=== PATIENT | male | born 1980 | race Caucasian/White ===

== ENCOUNTER 2020-01-29 05:23 | Emergency (ER) | payer SELFPAY ==
[~2020-01-29] VITALS: Ht 182.9 cm; Wt 86.2 kg
--- NOTE | 2020-01-29 05:23 | NUR ---
MARISOL REBOLLAR, PREBOOK. TAKEN TO CHAIR.
[2020-01-29 05:30] VITALS: BP 117/86
--- NOTE | 2020-01-29 05:40 | NUR ---
Dr. Vázquez examining patient.
--- NOTE | 2020-01-29 05:47 | NUR ---
PATIENT BIB [employer]. PATIENT EXAMINED BY DR. RAMIREZ. PATIENT MEDICALLY CLEARED AND RELEASED IN CUSTODY IN STABLE CONDITION. ORIGINAL PRE-BOOK FORM GIVEN TO OFFICER LENORA, #[phone].
== END 2020-01-29 05:47 ==
LOC: MED 05:23
DX: G89.29 Other chronic pain (principal); Z02.89 Encounter for other administrative examinations
CPT/HCPCS: 99283

== ENCOUNTER 2020-03-17 03:20 | Emergency (ER) | payer OTHER ==
[~2020-03-17] VITALS: Ht 182.9 cm; Wt 72.6 kg
[2020-03-17 03:20] VITALS: BP 155/100
--- NOTE | 2020-03-17 03:20 | NUR ---
TO [facility] WITH [place] [employer].
--- NOTE | 2020-03-17 03:42 | NUR ---
SEEN AND EXAMINED BY CLOVIS WITH ORDERS, CARRIED OUT.
[2020-03-17 04:00] VITALS: BP 138/98
--- NOTE | 2020-03-17 04:00 | NUR ---
PATIENT [facility]. PATIENT EXAMINED BY DR. AGUILAR. PATIENT MEDICALLY CLEARED AND RELEASED IN CUSTODY IN STABLE CONDITION. ORIGINAL PRE-BOOK FORM GIVEN TO OFFICER Mackenzie NAM #[phone].
--- NOTE | 2020-03-17 04:00 | NUR ---
Patient discharged with v/s stable. Written and verbal after care instructions given and explained. Patient verbalized understanding. Ambulatory with in custody. All questions addressed prior to discharge. Advised to follow up with PMD.
== END 2020-03-17 04:00 ==
LOC: MED 03:20
DX: R07.9 Chest pain, unspecified (principal); Z20.828 Contact with and (suspected) exposure to other viral communicable diseases; Z02.89 Encounter for other administrative examinations
CPT/HCPCS: 93005; 99283

== ENCOUNTER 2021-06-22 01:03 | Inpatient (IN) | payer OTHER ==
[~2021-06-22] VITALS: Ht 175.3 cm; Wt 81.6 kg
[2021-06-22 01:10] VITALS: BP 140/95
--- NOTE | 2021-06-22 01:12 | NUR ---
PATIENT IN ROOM 5
--- NOTE | 2021-06-22 01:16 | NUR ---
PD AT BEDSIDE TO PLACE PATIENT ON HOLD
--- NOTE | 2021-06-22 01:16 | NUR ---
PATIENT PLACED ON [place] GUIDE, BED LOW AND LOCKED. JH SIDE RAILS UP FOR SAFETY. ALL NEEDS MET AT THIS TIME.
--- NOTE | 2021-06-22 01:17 | NUR ---
[place] [employer] AT BEDSIDE TO PLACE PATIENT ON HOLD.
[2021-06-22] MEDS ORDERED: NALOXONE PFS 2 MG/2 ML SYR IVP ONE (01:20)
[2021-06-22] MEDS ORDERED: NACL 0.9% 1,000 ML IV ONE (01:20)
--- NOTE | 2021-06-22 01:20 | NUR ---
41/M BIBA FOR ALTERED MENTAL STATUS. PATIENT IS AAOX0. SPEECH IS UNCOMPREHENSIVE. PATIENT RESPONDS TO PAIN AND VERBAL STIMULI. PER PD PATIENT IS BEING PLACED ON HOLD FOR BEING GRAVELY DISABLED, AFTER FALLING AT A TRANSIT CENTER. PATIENT WAS DRINKING PRIOR TO FALL. PATIENT FALL WAS WITNESSED BY A BYSTANDERED. UNKNOWN LOC. PATIENT CURRENTLY HAS A FALL RISK ARM BAND, NONSLIP SOCKS AND GOWN FROM A PREVIOUS HOSPITAL VISIT. PATIENT HAS A RIGHT HAND BRACE AND RIGHT HEAD DENT. PATIENT BEING ASSESSED BY MD PALMA. BED LOW AND LOCKED. JH SIDE RAILS UP FOR SAFETY. PLACED ON STEEPLE JACK. ALL NEEDS MET AT THIS TIME. ALLERGIES UNOBTAINABLE PMHX UNOBTAINABLE MEDS UNOBTAINABLE
--- NOTE | 2021-06-22 01:28 | NUR ---
TAMRA SWAB COLLECTED AND HANDED TO LAB
--- NOTE | 2021-06-22 01:28 | NUR ---
LAB AT BEDSIDE
--- NOTE | 2021-06-22 01:30 | NUR ---
PATIENT CLEANED UP AND PLACED ON A GOWN AND NONSLIP SOCKS. WARM COVERS FOR COMFORT. PATIENT COOPERATIVE AND CALM.
[2021-06-22 01:39] LABS: BASOPHILS # (AUTO) 0.3 K/uL (0.00-0.22); EOSINOPHILS # (AUTO) 0.1 K/uL (0-0.4); EOSINOPHILS % (AUTO) 1.2 % (0.0-4.0); HEMATOCRIT 40.6 % (36-52); HEMOGLOBIN 13.8 g/dL (12.0-18.0); LYMPHOCYTES # (AUTO) 1.1 K/uL (2.0-11.5); LYMPHOCYTES % (AUTO) 22.3 % (20.5-51.1); MEAN CORPUSCULAR HEMOGLOBIN 30 pg (27-31); MEAN CORPUSCULAR HGB CONC 34 g/dL (33-37); MONOCYTES # (AUTO) 0.4 K/uL (0.8-1.0); MONOCYTES % (AUTO) 8.1 % (1.7-9.3); NEUTROPHILS # (AUTO) 3.2 K/uL (1.8-7.7); NEUTROPHILS % (AUTO) 62.4 % (42.2-75.2); PLATELET COUNT (AUTO) 205 K/uL (140-450); RED BLOOD CELL COUNT(AUTO) 4.56 MIL/uL (4.20-6.10); RED CELL DISTRIBUTION WIDTH 14.6 % (11.6-13.7)
[2021-06-22 01:51] LABS: CARBON DIOXIDE 25.8 mmol/L (21-32)
[2021-06-22 01:53] LABS: ANION GAP 15.8 (8-16); CHLORIDE 104 mmol/L (98-107); POTASSIUM 3.6 mmol/L (3.5-5.1); SODIUM SERUM 142 mmol/L (136-145)
--- NOTE | 2021-06-22 01:57 | NUR ---
patient to CT via [facility]
--- NOTE | 2021-06-22 01:59 | NUR ---
Analia hernandez in [facility] - 06/22/21 at 0159 by STEPHANE PATIENT TAKEN TO CT VIA [facility]
[2021-06-22 02:01] LABS: CREATININE 0.9 mg/dL (0.6-1.3); GFR ARICAN-AMERICAN 121 mL/min (>90); GLUCOSE 83 mg/dL (74-106); UREA NITROGEN, BLOOD 16 mg/dL (7-18)
[2021-06-22 02:10] LABS: ASPARTATE AMINOTRANSFERASE 25 U/L (15-37); TOTAL BILIRUBIN 0.3 mg/dL (0.0-1.0)
[2021-06-22 02:11] LABS: ALBUMIN 4.3 g/dL (3.4-5.0)
[2021-06-22 02:13] LABS: ACETAMINOPHEN < 0.5 ug/ml (10-30); SALICYLATE < 2.8 mg/dL (2.8-20.0)
--- NOTE | 2021-06-22 02:41 | NUR ---
# 16 FR Urinary catheter inserted utilizing sterile technique. Immediate return of 6 ml yellow/clear urine noted. Urine sample collected and sent to lab. Pt tolerated procedure well.
--- NOTE | 2021-06-22 02:41 | NUR ---
UA COLLECTED AND WALKED TO LAB
[2021-06-22 02:42] LABS: APPEARANCE,URINE CLEAR (CLEAR); BILIRUBIN,URINE NEGATIVE (NEGATIVE); BLOOD, URINE NEGATIVE (NEGATIVE); COLOR,URINE YELLOW (YELLOW); LEUKOCYTE ESTERASE ,URINE NEGATIVE (NEGATIVE); NITRITE, URINE NEGATIVE (NEGATIVE); UGLUCOSE NEGATIVE (NEGATIVE)
[2021-06-22 03:04] LABS: BARBITURATE, URINE NEGATIVE ng/ml (NEG <=200); BENZODIAZEPINE, URINE NEGATIVE ng/mL (NEG <=200); COCAINE, URINE NEGATIVE ng/mL (NEG <=300)
[2021-06-22 03:05] LABS: CANNABINOID, URINE NEGATIVE ng/mL (NEG <=50); OPIATE, URINE NEGATIVE ng/mL (NEG <=2000); PHENCYCLIDINE SCREEN,URINE NEGATIVE ng/mL (NEG <=25)
[2021-06-22] MEDS ORDERED: ONDANSETRON 4 MG/2 ML VIAL ONE (04:23)
--- NOTE | 2021-06-22 04:27 | NUR ---
patient feeling nauseated. ERMD made aware-- order of zofran 4mg IVP received
[2021-06-22] MEDS ORDERED: THIAMINE 200 MG/2 ML VIAL IM ONE (04:30)
[2021-06-22] MEDS ORDERED: MULTIVITAMIN-12 10 ML in NACL 0.9% 1,000 ML IV ONE (04:30)
[2021-06-22] MEDS ORDERED: MAG SULF 2000 MG/WATER PREMIX 50 ML IV ONE (04:30)
[2021-06-22] MEDS ORDERED: FOLIC ACID 5 MG/ML SYR IM ONE (04:30)
[2021-06-22] MEDS ORDERED: ONDANSETRON 4 MG/2 ML VIAL IVP ONE (04:30)
[2021-06-22] MEDS ORDERED: LORazepam 2 MG/ML VIAL ONE (04:40)
[2021-06-22] MEDS ORDERED: LORazepam 2 MG/ML VIAL IVP ONE ×2 (04:40)
--- NOTE | 2021-06-22 04:42 | NUR ---
patient becoming agitated, and restless. patient yelling and attempted to throw urinal bottle.
--- NOTE | 2021-06-22 04:49 | NUR ---
IV removed, catheter intact and site benign. Applied folded 4x4 gauze and tape to stop bleeding.
[2021-06-22] MEDS ORDERED: MULTIVITAMIN-12 10 ML VIAL IV ONE (04:58)
--- NOTE | 2021-06-22 05:18 | NUR ---
TELE NEURO FINISHED BY .
--- NOTE | 2021-06-22 06:41 | NUR ---
Pt report given to Zully ADLER. Transfer of care at this time.
--- NOTE | 2021-06-22 06:51 | NUR ---
attempted to start IV multiple times- unsuccessful
--- NOTE | 2021-06-22 07:15 | NUR ---
RECEIVED REPORT FROM JIMBO RN, TRANSFER OF CARE AT THIS TIME. RECEIVED PATIENT A/OX0, BANANA BAG INFUSING WELL AT 250CC/HR 22G IN THE LEFT WRIST. SEMI FOWLERS IN BED, BED IN LOWEST POSITION, LOCKED. BRACE ON THE RIGHT WRIST, CONTRACTED RIGHT ARM. RESPIRATIONS EVEN AND UNLABORED, NO S/S OF DISTRESS NOTED AT THIS TIME.
--- NOTE | 2021-06-22 07:15 | NUR ---
SEIZURE PADS PLACED, PT POSSIBLE SEIZURE FOR ALCOHOL WITHDRAWAL
[2021-06-22 07:45] VITALS: BP 128/85
--- NOTE | 2021-06-22 07:45 | NUR ---
PT ARRIVED ONTO UNIT VIA GURNEY FROM ER, ACCOMPANIED BY ER NURSE NAD TRANSPORTER. PT IS ASLEEP AT THIS TIME. RESPIRATIONS ARE EVEN AND UNLABORED. NO SIGNS OF DISTRESS NOTED. PER ER NURSE, PT IS A&OX0, HAS ONLY WOKEN UP FOR SHORT PERIODS OF TIME AND FALLS ASLEEP AGAIN. PT IS ON CARDIAC MONITORING AT THIS TIME, HR AT 104. ABD IS NONTENDER, NONDISTENDED. PT IS ON NPO DIET EXCEPT FOR MEDS AT THIS TIME. SKIN IS WARM, AND DRY. SMALL CUT NOTED TO R LUTHERAN. PT IS HERE FOR 5150 HOLD. MRSA SCREEN DONE. VITALS TAKEN. ALL SAFETY MEASURES IN PLACE. SITTER AT DOOR WAY. WILL CONTINUE TO MONITOR.
--- NOTE | 2021-06-22 07:45 | NUR ---
Patient will be admitted to care of LEIDY FAJARDO. Admited to TELEMETRY. Will go to room 107A. Belongings list completed. Report to RONNY MELTON.
--- NOTE | 2021-06-22 08:00 | NUR ---
Patient's Plan of Care was discussed and reviewed with INDUSTRIAL ENGINEERING PROFESSOR: RONNY VILLATORO
[2021-06-22] MEDS: DEXT 5% /NACL 0.9% 1,000 ML IV SCH ×2 (08:30→16:49)
[2021-06-22] MEDS ORDERED: DOCUSATE SODIUM 100 MG GELCAP PO PRN (08:30)
[2021-06-22] MEDS ORDERED: guaiFENesin DM 200/20 MG-10 ML 10 ML UDC PO PRN (08:30)
[2021-06-22] MEDS ORDERED: ONDANSETRON 4 MG/2 ML VIAL IM/IVP PRN (08:30)
[2021-06-22] MEDS ORDERED: POTASSIUM CHLORIDE 10 MEQ TABER PO PRN (08:30)
[2021-06-22] MEDS ORDERED: LORazepam 2 MG/ML VIAL IVP PRN (08:35)
[2021-06-22] MEDS ORDERED: MULTIVITAMIN-12 10 ML, FOLIC ACID 1 MG in DEXT 5% / LACT RING 1,000 ML IV ONE (08:35)
[2021-06-22] MEDS: chlordiazePOXIDE 25 MG CAP PO SCH ×3 (09:00→17:59)
[2021-06-22] MEDS: PANTOPRAZOLE 40 MG TABEC PO SCH (09:00)
[2021-06-22 09:28] LABS: PROTHROMBIN TIME 10.1 secs (10.8-13.4)
[2021-06-22 09:30] LABS: CHOL/HDL RATIO 2.9 (1-4.5); FREE T4 (FREE THYROXINE) 1.1 ng/dL (0.76-1.46); MAGNESIUM 2.1 mg/dL (1.8-2.4); PHOSPHORUS 4.3 mg/dL (2.5-4.9); THYROID STIMULATING HORMONE 1.26 uIU/mL (0.34-3.74)
--- NOTE | 2021-06-22 09:56 | NUR ---
DC PLANNIN YRS OLD MALE PATIENT WAS ADMITTED FROM HOME WITH A DX OF ALOC, METABOLIC ENCEPHALOPATHY, ETOH INTOXICATION. PATIENT HAS A HX OF HTN. CT HEAD SHOWED SMALL HEMORRHAGES AND LEFT CRANIOTOMY WITH LEFT FRONTAL LOBE ENCEPHALOMALACIA. CXR NEGATIVE. RAPID COVID TEST NEGATIVE. ADMINISTERED IVF. CONSULTED WITH NEUROLOGIST. DC PLAN PER NEUROLOGIST RECOMMENDATIONS. CM TO FOLLOW Addendum: 06/23/21 at 0923 by Harini Rolle RN DC PLANNING: DR GOMEZ NEUROLOGIST VISITED PATIENT ,STILL RECOMMENDED TO TRANSFER TO [facility] FOR LEFT FRONTAL CYSTIC HYGOMA OR BRAIN ABSCESS AT LEFT CRANIECTOMY SITE. CALLED [facility] POULTRY SLAUGHTERER SPOKE WITH ADY,EXPLAINED THAT DR GOMEZ RECOMMENDED THAT PT HAS TOGO BACK TO [facility]. ADY STATED CASE WAS DECLINED BY NEUROSURGEON DR ABAD, HOWEVER WILL CONTACT HIM AGAIN AND SUBMIT DR GOMEZ'S PROGRESS NOTES. PROVIDE DR GOMEZ'S CELL PHONE FOR PEER TO PEER. CM TO FOLLOW
--- NOTE | 2021-06-22 10:03 | NUR ---
UNABLE TO ADMINISTER SCHEDULED MEDICATIONS DUE TO PT CLINICAL CONDITION. WILL CONTINUE TO MONITOR.
--- NOTE | 2021-06-22 10:58 | NUR ---
PT WOKE UP, ASKING FOR WATER. ADMINISTERED PO LIBRIUM. PT WENT BACK TO SLEEP. WILL CONTINUE TO MONITOR.
--- NOTE | 2021-06-22 11:24 | NUR ---
DC PLANNING MACEY ATTEMPTED TO MEET WITH PATIENT AT BEDSIDE HOWEVER, UNABLE TO MEET WITH PATIENT DUE TO PATIENTS CLINICAL STATUS. Addendum: 07/04/21 at 1635 by Shaun RAMAN INCAPACITY DECLARATION WRITTEN BY DIRECTOR, LETTER PROVIDED TO CONCERT PIANISTDAMEON. Addendum: 07/11/21 at 1452 by Shaun RAMAN MACEY OUTREACHED TO [facility], [phone], PATIENT'S LAST KNOWN SNF PLACEMENT. SW ON HOLD FOR 28 MINUTES FOR FACILITIES SW'S, BEFORE BEING DISCONNECTED. MACEY CONTINUED TO CALL FACILITY AND REQUESTED TO SPEAK WITH FACILITIES SW AND/OR ADMIN. FACILITIES FIBER MACHINE TENDER, BELTRAN, REPORTED BEING UNABLE TO REACH FACILITIES SW'S ( LAKISHA OR GRETCHEN) HOWEVER, TOOK DOWN PHONE NUMBER AND REPORTED THAT SHE WOULD GIVE MESSAGE TO FACILITIES SW. Addendum: 07/11/21 at 1531 by Shaun RAMAN MACEY OUTREACHED TO [facility] ADMISSIONS AND SPOKE WITH HAYLEE, TO INQUIRE ON CRITERIA/REQUIREMENTS FOR BRAIN INJURY ADMISSIONS. MACEY SENT OVER PACKET TO BE REVIEWED BY [facility] HAYLEE WANG TO FOLLOW UP. Addendum: 07/12/21 at 1518 by Shaun RAMAN DC PLANNING LATE ENTRY FOR 07/11 MACEY FIELDED A CALL FROM [facility] BRAIN INJURY UNIT WHO REPORTED THAT PATIENTS PACKET HAD BEEN REVIEWED. ADMISSION REP REPORTED THAT PATIENT IS NOT A CANDIDATE FOR PROGRAM PATIENT IS HOMELESS, OUT OF SNF DAYS, TOO HIGH FX AND HAS NO SUPPORTIVE FAMILY CARE THAT ARE LEGALLY MANDATED TO BE TRAINED ON HOW TO CARE FOR PATIENT.
[2021-06-22 12:00] VITALS: BP 128/76
--- NOTE | 2021-06-22 12:49 | NUR ---
ENDORSED PT TO LINH WILLIAM FOR CONTINUITY OF CARE. PT IS STABLE.
--- NOTE | 2021-06-22 12:50 | NUR ---
RECEIVED REPORT FROM NURSE JEFFERSON FOR CONTINUITY OF CARE. PT IS SLEEPING AT THIS TIME. CHEST RISING AND FALLING WITHOUT ACUTE DISTRESS AT ROOM AIR. IV SITE AT LEFT WRIST G22. PT WITH 1:1 SITTER. SAFETY MEASURES IN PLACE. BED ALARM ON AND AT ITS LOWEST POSITION. WILL CONTINUE TO MONITOR.
--- NOTE | 2021-06-22 13:35 | NUR ---
IV LINE KAMERON G 20 INSERTED BY RN. PT TOLERATED WELL. WILL CONTINUE TO MONITOR.
--- NOTE | 2021-06-22 13:55 | NUR ---
PT LEFT THE UNIT WITH RADIOLOGY STAFF FOR CT ANGIO HEAD. PT IS STABLE.
--- NOTE | 2021-06-22 14:00 | NUR ---
HAD A CALL FROM DR. PAXTON BONNER SAID PATIENT NEEDS TO TRANSFER TO [facility] FOR BRAIN BLEEDING. NOTIFIED MEAT SCRUBBER PAT AND MADE AWARE. PATIENT OFF FLOOR WENT TO CT SCAN.
--- NOTE | 2021-06-22 14:27 | NUR ---
DC PLANNING: CM RECEIVED AN ORDER TO TRANSFER PATIENT TO [facility] TO DX OF CEREBRAL BLEED. CLINICAL PACKET FAXED TO [facility], [facility] AND [facility]. CM SPOKE WITH EACH HOSPITAL TO MAKE THEM AWARE THAT THE REFERRAL HAS BEEN SENT AND ASKING FOR FOLLOW UP. CM WILL FOLLOW. Addendum: 06/22/21 at 1506 by Rosa Isela March CM DC PLANNING: JOSELUIS SPOKE WITH SEN AT [facility], STATES PATIENT CLINICAL SCENARIO WAS REVIEWED BY TRAUMA, NEUROLOGY AND NEUROSURGERY, ALL DECLINED TRANSFER STATING THAT PATIENT DOES NOT REQUIRE SURGICAL INTERVENTION AND THAT THE BLEED IS TOO SMALL FOR INTERVENTION. THEY RECOMMEND OBSERVING PATIENT AND REPEATING THE HEAD CT. CM WILL FOLLOW. Addendum: 06/22/21 at 1620 by Rosa Isela March CM DC PLANNING: JOSELUIS SPOKE WITH JEB AT [facility], SHE IS ATTEMPTING TO SPEAK WITH THE ATTENDING MD OR NEUROLOGIST FOR THIS PATIENT, ALSO ASKED FOR PCR, ORDER PLACED FOR THIS. CASE STILL UNDER REVIEW. NO RESPONSE FROM [facility] YET. CM WILL FOLLOW Addendum: 06/23/21 at 1501 by Harini Rolle RN DC PLANNING: CALLED [facility] SPOKE WITH ADY MARTIN STATED RECEIVED THE HEAD CT WITH CONTRAST AWAITING FOR DR ABAD TO CALL BACK. PER ADY FOUND THE RECORD THAT SAYS HE HAD A LEFT CRANIOTOMY ON AUGUST 18, 2021. DR ABAD IS ASKING TO CONSULT ID FOR BRAIN ABSCESS. NOTIFIED DR MATTA AND DR MATTA CONSULTED DR GALLEGO. CM TO FOLLOW Addendum: 06/23/21 at 1705 by Harini Rolle RN DC PLANNING: RECEIVED A CALL FROM AMINA AT [facility] VERONICA , REACHED OUT TO DR PETERS WHO PERFORMED THE SURGERY ON August REQUESTING THE INFECTIOUS DISEASE INPUT, INFORM NAMRATA MARTIN TO FOLLOW UP WITH ID NOTE AND FAXED TO [facility] WHEN ITS AVAILABLE. [facility] FAX # [phone] PHONE NUMBER [phone] CM TO FOLLOW Addendum: 06/27/21 at 1058 by Harini Rolle RN DC PLANNING: PATIENT HAS AN ORDER TO GO TO SNF FOR GRAVELY DISABLED, CM SPOKE WITH PATIENT BUT PATIENT IS APHASIC ANSWERED YES OR NO QUESTION, UNABLE TO FOLLOW CONVERSATION NO FAMILY AVAILABLE. FAXED TO [facility]. CM TO FOLLOW Addendum: 06/27/21 at 1103 by Harini Rolle RN DC PLANNING: CALLED [phone] LEFT A MESSAGE. CM TO FOLLOW Addendum: 06/27/21 at 1646 by Harini Rolle RN DC PLANNING: RECEIVED A CALL FROM [facility] [place] STATED PATIENT WAS AT MULTIPLE SNF PRIOR TO HOSPITALIZATION AND THEY ARE UNABLE TO TAKE PATIENT BECAUSE HE HAS NO SNF DAYS, AND NO MEDICAL. NOTIFIED SOLO AT [facility] WILL APPLY FOR MEDICAL. CM CALLED SHANE GARCÍA SPOKE WITH SARAH STATED PATIENT WAS WITH THEM FROM APR 04 TO MAY 15 AND SIGNED AMA. SARAH PROVIDE THE SENIOR CLINICAL DATA COORDINATOR HEBERT [phone] AND MARK [phone]. CALLED HEBERT NOTIFIED HER THAT PATIENT IS IN [facility]. HEBERT STATED SHE IS HIS AUNT AND MARK IS HER DAUGHTER, SHE CAN BE A SENIOR CLINICAL DATA COORDINATOR AND A DISCISSION MAKER ON ANY MEDICAL NEEDS. SHE ALSO STATED THE BRAIN SURGERY AFFECTS HIS SPEECH AND SHE WAS AWARE THAT HE SIGNED AMA FROM THE SNF AND AFTER THAT SHE HADN'T SEEN HIM OR SPOKE WITH HIM. CM TO FOLLOW Addendum: 06/29/21 at 1107 by Harini Rolle RN LATE ENTRY 06/28 RECEIVED A CALL FROM BAIRON AT [facility] STATED THEY CAN NOT TAKE PATIENT BECAUSE PATIENT HAS NO SNF DAYS AND ALL SNF'S CAN NOT TAKE LIFE TIME RESERVED DAYS. TERRI BANDA LEFT A MESSAGE FOR FAMILY MEMBER. CALLED [facility] [phone] SPOKE WITH DENISE, DISCUSSED PATIENT CONDITION AND SITUATION PER DENISE IF PATIENT IS APHASIC OR CAN NOT EXPRESS HIS FEELINGS [facility] UNABLE TO HELP HIM. DECLINE THE CASE. CM TO FOLLOW Addendum: 06/29/21 at 1313 by Harini Rolle RN DC PLANNING: LUIGI BANDA AT [facility] STATED LEFT A MESSAGE FOR PT'S AUNT HEBERT. AWAITING FOR RESPONSE. CM TO FOLLOW Addendum: 06/30/21 at 1034 by Harini Rolle RN DC PLANNING: CALLED PT'S AUNT HEBERT AT [phone] STATED DIDN'T RECEIVE ANY MESSAGES FROM [facility] MAY BE IT WENT TO [facility] HOWEVER WILL CHECK THE NUMBER. CALLED SOLO AND NOTIFIED HIM THAT TO CALL HER. CM TO FOLLOW Addendum: 06/30/21 at 1205 by Harini Rolle RN DC PLANNING: RECEIVED A CALL FROM [facility] STATED HE SPOKE WITH HEBERT TOLD HIM HE WS BORN IN [place]. SOLO WAS ASKING IF PATIENT HAS ID CARD CHECKED PT'S BELONGINGS IN THE SECURITY OFFICE WITH LINA NO ID FOUND PT HAS ONLY BLACK LEATHER LIKE SHOES AND 13 DOLLARS. CALLED [place] [employer] SPOKE WITH THE DESPATCHER, ASKED IF IF THEY ARE ABLE TO ID HIM. PER DESPATCHER WILL SEND OFFICER TO THE ROOM . PROVIDED MY NAME AND NUMBER. CM TO FOLLOW. Addendum: 06/30/21 at 1229 by Harini Rolle RN DC PLANNING: JOSEPH REBOLLAR IN THE UNIT CHECKED THE NAME AND DATE FROM THE SYSTEM AND ABLE TO MATCH WITH THE ID NUMBER JOSEPH REBOLLAR PROVIDED THE ID # [id number]. CALLED [facility] AND PROVIDE THE ID NUMBER. CM TO FOLLOW Addendum: 07/04/21 at 1411 by Harini Rolle RN DC PLANNING: TERRI BANDA FROM [facility] STATED MEDICAL ALREADY SUBMITTED AND MIGHT TAKE 2-3 WEEKS. CM TO FOLLOW
[2021-06-22 16:00] VITALS: BP 110/63
--- NOTE | 2021-06-22 16:46 | NUR ---
PATIENT HAS BEEN SCREENED AND CATEGORIZED LOW NUTRITION RISK. PATIENT WILL BE SEEN WITHIN 7 DAYS OF ADMISSION. 06/22/[address]ONY ZAV[address]
--- NOTE | 2021-06-22 18:07 | NUR ---
DID PT ROUNDS. PT IN SITTING AT BEDSIDE, AWAKE. NO DISTRESS NOTED. PT WITH 1:1 SITTER OUTSIDE ROOM. PT STILL ON NPO.
--- NOTE | 2021-06-22 19:34 | NUR ---
ENDORSED PT TO DIRECTOR OF FINANCIAL PLANNING NURSE FOR CONTINUITY OF CARE. ALL NEEDS MET THROUGHOUT SHIFT. PT IS STABLE.
--- NOTE | 2021-06-22 19:35 | NUR ---
RECEIVED ENDORSEMENT FROM [facility]. PATIENT IN BED ASLEEP ON ARRIVAL. IV FLUID WERE RESTARTED D/T PULLED IV EARLIER AND NOW 20 JAQUAN INSERTED TO RIGHT UPPER ARM PROTECTED WITH GAUZE. iV SITE CLEAN PATENT, NO S/SX OF INFILTRATION, AND NOT TENDER TO TOUCH. DURING SHIFT CHANGE INTRODUCTION TO THE PATIENT HE WAS ABLE TO SAY HELLO BUT UNAWARE OF HIS NAME, LOCATION, AND TIME. HIS RESPONSE TO ALL QUESTION WAS "I DON'T KNOW". WHEN ASKED IF HE WAS IN PAIN HE DID RESPOND WITH NO. PATIENT WAS ABLE TO FOLLOW SIMPLE COMMANDS. PATIENT WAS ABLE TO SELF ADJUST IN BED FOR COMFORT WITH MINIMAL ASSIST. RIGHT ARM WAS NOTED SEMI CONTRACTED INWARD TOWARDS HIS BODY. ABLE TO BREATH WITH NO DISTRESS OR PAIN ON ROOM AIR. OBSERVED PATIENT USING URINAL WITH NO ASSISTANCE WHILE IN THE BED. 1:1 SITTER AT BED SIDE WITH SIDE RAILS UP X 4 FOR ALL AND SEIZURE PRECAUTION MEASURES. BED ALARM ON AND FUNCTIONAL. [email or web address]
[2021-06-22 20:00] VITALS: BP 140/79
--- NOTE | 2021-06-22 20:00 | NUR ---
Patient's Plan of Care was discussed and reviewed with LINH JESUS.
[2021-06-22] MEDS: HYDROcodone/APAP 7.5/325 MG 1 TAB PO PRN (20:21)
--- NOTE | 2021-06-22 21:37 | NUR ---
PATIENT REMAINS IN BED ASLEEP AND PAIN FREE D/T PAIN MEDICATION HER REQUESTED FOR RIGHT ARM. PATIENT WAS ABLE TO COMMUNICATE NEED MEDICATION AND GUARDED HIS RIGHT ARM. IV STILL RUNNING WITHOUT ANY PROBLEMS. PATIENT UNDERSTANDS TO LEAVE IT AND DO NOT PULL OUT. CHEST IS RISING AND FALLING WITHOUT ANY PAIN/DISCOMFORT. SIDE RAILS UP X 4 FOR SEIZURE AND SAFETY. [email or web address]
--- NOTE | 2021-06-22 23:35 | NUR ---
PATIENT REMAINS IN BED ASLEEP. MD HAS CHANGED THE DIET TO REGULAR. NURSING HEARS PATIENT SNORING AND SEES CHEST RISING AND FALLING. NO NOTED S/SX OF PAIN/DISCOMFORT. BED AT THE LOWEST LEVEL, BED ALARM ON, SIDE RAILS X 4 UP FOR SEIZURE AND SAFETY. SITTER AT BEDSIDE FOR KEEP PATIENT FROM SELF HARM. [email or web address]
[2021-06-23] VITALS: BP 123/74
[2021-06-23] MEDS: DEXT 5% /NACL 0.9% 1,000 ML IV SCH ×3 (00:36→17:19)
[2021-06-23] MEDS: ZOLPIDEM 5 MG TAB PO PRN (01:26)
--- NOTE | 2021-06-23 01:34 | NUR ---
PATIENT HAS BECOME MORE COHERENT WITH DEMANDS AND NEEDS. PATIENT STILL DOES NOT MAKE FULL SENTENCES BUT ASKS FOR MEDS AND FOOD. ONCE GIVEN PATIENT SAYS THANK YOU AND GOES BACK TO SLEEP. IVF ARE STILL RUNNING WITHOUT INCIDENT. PATIENT REMAINS CLEAN AND DRY. BED AT THE LOWEST LEVEL. SIDE RAILS UP X 4 FOR SEIZURE ACTIVITY. SITTER AT BED SIDE FOR SAFETY. MNURPH1
--- NOTE | 2021-06-23 03:30 | NUR ---
PATIENT REMAINS IN BED ASLEEP WITHOUT INCIDENT. SIDE RAILS X 4 UP FOR SEIZURE AND SAFETY. NO NOTED SEIZURE ACTIVITY DURING THE NIGHT. SITTER REMAINS AT BEDSIDE FOR SAFETY. IVF CONTINUES ON. NO S/SX OF PAIN/DISCOMFORT NO S/SX OF ACUTE RESPIRATORY DISTRESS. [email or web address]
[2021-06-23 04:00] VITALS: BP 116/78
--- NOTE | 2021-06-23 05:35 | NUR ---
PATIENT REMAINS WAS GIVEN BED BATH. PATIENT PARTICIPATED IN ORAL HYGIENE. SIDE RAILS X 4 UP FOR SEIZURE AND SAFETY. NO NOTED SEIZURE ACTIVITY DURING THE NIGHT. SITTER REMAINS AT BEDSIDE FOR SAFETY. IVF CONTINUES ON. NO S/SX OF PAIN/DISCOMFORT NO S/SX OF ACUTE RESPIRATORY DISTRESS. [email or web address]
[2021-06-23 06:38] LABS: BASOPHILS % (AUTO) 1.4 % (0.0-2.0); EOSINOPHILS # (AUTO) 0.1 K/uL (0-0.4); EOSINOPHILS % (AUTO) 2.6 % (0.0-4.0); HEMATOCRIT 33.3 % (36-52); LYMPHOCYTES # (AUTO) 1.2 K/uL (2.0-11.5); LYMPHOCYTES % (AUTO) 40.9 % (20.5-51.1); MEAN CORPUSCULAR HEMOGLOBIN 30 pg (27-31); MEAN CORPUSCULAR HGB CONC 33 g/dL (33-37); MEAN CORPUSCULAR VOLUME 90.7 fL (80-94); MONOCYTES # (AUTO) 0.5 K/uL (0.8-1.0); MONOCYTES % (AUTO) 16.8 % (1.7-9.3); NEUTROPHILS # (AUTO) 1.2 K/uL (1.8-7.7); NEUTROPHILS % (AUTO) 38.3 % (42.2-75.2); PLATELET COUNT (AUTO) 160 K/uL (140-450); RED BLOOD CELL COUNT(AUTO) 3.67 MIL/uL (4.20-6.10); RED CELL DISTRIBUTION WIDTH 14.4 % (11.6-13.7)
[2021-06-23 06:46] LABS: ANION GAP 7.6 (8-16); CREATININE 0.7 mg/dL (0.6-1.3); POTASSIUM 3.6 mmol/L (3.5-5.1)
--- NOTE | 2021-06-23 07:10 | NUR ---
RECEIVED REPORT FROM CONTROL ROOM TECHNICIAN NURSE FOR CONTINUITY OF CARE. PT ASLEEP IN BED. BREATHING SYMMETRICAL ON ROOM AIR. WITH KAMERON 20G RUNNING D5NS AT 125CC/HR. NOTED WITH BUMP/SWELLING ON RIGHT FOREHEAD ABOVE THE EYEBROW, NO ACTIVE BLEEDING NOTED. ONE ON ONE SITTER PROVIDED TO ENSURE PT SAFETY. ON SEIZURE, FALL AND ASPIRATION PRECAUTIONS. PER REPORT PT ABLE TO VERBALIZE SIMPLE WORDS BUT UNABLE TO CONVERSE WELL. WILL CONTINUE TO MONITOR
--- NOTE | 2021-06-23 07:26 | NUR ---
ENDORSED PATIENT TO BRANDIE BURGER CNA WAS ASSIGNED SITTER. PATIENT IS ASLEEP IN BED AND STABLE. [email or web address]
[2021-06-23 08:00] VITALS: BP 128/90
[2021-06-23 08:08] LABS: T4 (THYROXINE) 8.7 ug/dL (4.5-12.0)
[2021-06-23] MEDS: levETIRAcetam 1,000 MG in NACL 0.9% 100 ML IV SCH ×2 (09:00→21:23)
[2021-06-23] MEDS: FOLIC ACID 1 MG TAB PO SCH (09:00)
[2021-06-23] MEDS: PANTOPRAZOLE 40 MG TABEC PO SCH (09:00)
[2021-06-23] MEDS: MULTIVITAMIN 1 TAB PO SCH (09:10)
[2021-06-23] MEDS: chlordiazePOXIDE 25 MG CAP PO SCH ×3 (09:10→17:00)
[2021-06-23] MEDS: THIAMINE 100 MG TAB PO SCH (09:10)
--- NOTE | 2021-06-23 09:11 | NUR ---
SCHEDULED AM MEDICATIONS GIVEN ORDERED. PT REFUSED FOLIC ACID AND PROTONIX, ABLE TO SWALLOW MEDS, NO SWALLOWING PROBLEM NOTED. PT UNABLE TO EXPRESS HIMSELF VERBALLY WELL, PT HAS DIFFICULTY FORMING SENTENCES AND WORDS, NOTED FRUSTRATED BUT GIVEN AMPLE TIME TO EXPRESS HIMSELF. APPROACHED CALMLY AND UNHURRIEDLY AT ALL TIMES. ALSO NOTED WITH JITTERY WITH RIGHT ARM CONTRACTURE. OTHERWISE NO C/O PAIN AT THIS TIME. ONE ON ONE SITTER PROVIDED.
--- NOTE | 2021-06-23 09:56 | NUR ---
PT TRANSFERRED TO [facility]
[2021-06-23] MEDS: LORazepam 2 MG/ML VIAL IM/IVP PRN (11:06)
--- NOTE | 2021-06-23 11:06 | NUR ---
PT NOTED AGITATED, PULLED OUT HIS IV LINE AND TRYING TO GET OUT OF HIS ROOM. CALLED SECURITY AND CALLED DR MATTA, OBTAINED ORDER FOR IM ATIVAN. PRN ATIVAN IM GIVEN FOR AGITATION. PT STILL WITH ONE ON ONE SITTER
--- NOTE | 2021-06-23 11:30 | NUR ---
PT LYING IN BED, AWAKE BUT CALM AT THIS TIME. WILL CONTINUE TO MONITOR.
--- NOTE | 2021-06-23 13:05 | NUR ---
PT COOPERATIVE AND CALM AT THIS TIME, ASSISTED TO THE RESTROOM HAD BM X1. PT ABLE TO AMBULATE BUT UNSTEADY AND NEEDS ASSISTANCE. PO LIBRIUM GIVEN AND TOOK MEDICATION.
--- NOTE | 2021-06-23 14:02 | NUR ---
PT AGREED FOR IV RE-INSERTION AFTER EXPLAINING IMPORTANCE. PERIPHERAL IV LINE INSERTED ON LAC 22G, NO S/SX OF INFILTRATION NOTED AT THIS TIME. ENCOURAGED PT NOT TO REMOVE IV LINE.
[2021-06-23 16:00] VITALS: BP 133/89
[2021-06-23] MEDS: HYDROcodone/APAP 7.5/325 MG 1 TAB PO PRN (18:07)
--- NOTE | 2021-06-23 18:10 | NUR ---
PT EATING DINNER AT THIS TIME, REMAINS CALM, COOPERATIVE AND COMPLIANT WITH MEDICATIONS. WITH ONE ON ONE SITTER
--- NOTE | 2021-06-23 19:10 | NUR ---
ENDORSED PT TO MEAT SELECTOR NURSE FOR CONTINUITY OF CARE. IN STABLE CONDITION
--- NOTE | 2021-06-23 19:11 | NUR ---
RECEIVE REPORT FROM BRANDIE RN , PATIENT IN THE BED ASLEEP AFTER IM PRN GIVEN ON PREVIOUS SHIFT. PATIENT CONTINUES ON SITTER AT BED SIDE FOR SAFETY. IS ON ROOM AIR BREATHING WITHOUT PAIN/DISCOMFORT. PATIENT HS NO S/SX OF ANY PAIN/DISCOMFORT. SIDE RAILS UP X 4 FOR ASSISTANCE AND SEIZURE PRECAUTION. IV SITE CLEAN AND INTACT NO S/SX OF PAIN/DISCOMFORT. BED AT THE LOWEST LEVEL AND THE BED ALARM IS ON. [email or web address]
[2021-06-23] MEDS: ACETAMINOPHEN 325 MG TAB PO PRN (21:04)
--- NOTE | 2021-06-23 21:11 | NUR ---
PATIENT BACK IN BED AFTER WALKING TO THE BATHROOM WITH EXECUTIVE MEETING MANAGER FOR ASSIST TO USE. PATIENT REQUESTED PAIN PRN TO RIGHT ARM. PRN WAS GIVEN PLEASE SEE MAR. PATIENT WAS REMINDED BEFORE FALLING ASLEEP NOT TO PULL OUT HIS IV. HE KNOTTED IN AGREEMENT. SIDE RAILS UP X 4 FOR SEIZURE AND SAFETY. SITTER AT BEDSIDE. IVF CONTINUE WITHOUT INCIDENT. [email or web address]
--- NOTE | 2021-06-23 23:11 | NUR ---
PATIENT IN BED ASLEEP WITHOUT INCIDENT. SITTER AT BED SIDE FOR SAFETY. NO NOTED SEIZURE ACTIVITY. MD WAS PAGED FOR PROGRESS NOTES FOR PATIENT TO TRANSFER TO A HIGHER LEVEL OF CARE. BED AT THE LOWEST LEVEL HEAD OF BE ELEVATED FOR COMFORT. NO S/SX OF PAIN OR DISCOMFORT. [email or web address]
[2021-06-24] MEDS: DEXT 5% /NACL 0.9% 1,000 ML IV SCH (00:30)
--- NOTE | 2021-06-24 01:11 | NUR ---
PATIENT IN BED ASLEEP WITHOUT INCIDENT. SITTER AT BED SIDE FOR SAFETY. NO NOTED SEIZURE ACTIVITY. BED AT THE LOWEST LEVEL HEAD OF BE ELEVATED FOR COMFORT. NO S/SX OF PAIN OR DISCOMFORT. [email or web address]
[2021-06-24 01:56] VITALS: BP 132/77
[2021-06-24 04:00] VITALS: BP 148/99
--- NOTE | 2021-06-24 04:09 | NUR ---
PATIENT'S IV HAS COME OUT. ATTEMPTED X 2 AND CALLED HAVE FOR RN TO ATTEMPT. [email or web address]
[2021-06-24] MEDS: LORazepam 2 MG/ML VIAL IM/IVP PRN ×3 (06:46→14:29)
--- NOTE | 2021-06-24 06:46 | NUR ---
MULTIPLE FAILED ATTEMPTS ON IV REINSERTION AT THIS TIME. PATIENT HAS BECOME VERY AGITATED AND DECLINING HIS BED BATH, NO TO BLOOD DRAW, AND NO TO SITTING DOWN BEFORE FALLING DOWN. NURSING GAVE IM OF ATIVAN PER MD ORDERS FOR AGITATION. PATIENT SAT DOWN IN HIS BED TO LAY DOWN. NURSING HE SIT DOWN TO RELAX BECAUSE POSSIBLE DISCHARGE PLANNING WILL BE DONE TODAY. PATIENT UNDERSTOOD AND AGREED. SIDE RAILS UP X 4 FOR SAFETY AND SEIZURE PRECAUTION. NO NOTED SEIZURE ACTIVITY AT THIS TIME. SITTER AT BEDSIDE TO ENSURE SAFETY. PATIENT IS CURRENTLY STABLE. [id number]
--- NOTE | 2021-06-24 07:16 | NUR ---
PATIENT WAS ENDORSED TO YOMAIRA MELTON. PATIENT IS IN BED A STABLE FOR CONTINUITY OF CARE [id number]
--- NOTE | 2021-06-24 07:17 | NUR ---
RECEIVED REPORT FROM ELECTROMATIC TYPIST NURSE FOR CONTINUITY OF CARE. ASLEEP NO DISTRESS OR BEHAVIORAL PROBLEM AT THIS TIME. RESPIRATION EVEN AND NOT LABORED NO SHORTNESS OF BREATH ON ROOM AIR. NO IV LINE WILL TRY TO INSERT LATER. ALL SAFETY MEASURE IN PLACE AND WITH SITTER.
--- NOTE | 2021-06-24 08:00 | NUR ---
RECEIVED REPORT FROM LINH BURNETTE FOR CONTINUITY OF CARE. PLAN OF CARE DISCUSSED.
--- NOTE | 2021-06-24 08:37 | NUR ---
PATIENT AWAKE AND REFUSED TO PUT IV SITE EVEN WITH EXPLANATION AND ENCOURAGEMENT. PATIENT DRINKING WELL. INFORM DR. TOBAR IF WE CAN DISCONTINUE THE IV HYDRATION AND CHANGE LEVETIRACETAM TO ORAL.
--- NOTE | 2021-06-24 08:39 | NUR ---
DR. TOBAR RESPONDED TO D/C IV HYDRATION AND CHANGE TO ORAL LEVETIRACETAM.
[2021-06-24] MEDS: FOLIC ACID 1 MG TAB PO SCH (08:46)
[2021-06-24] MEDS: MULTIVITAMIN 1 TAB PO SCH (08:46)
[2021-06-24] MEDS: chlordiazePOXIDE 25 MG CAP PO SCH ×3 (08:46→16:44)
[2021-06-24] MEDS: THIAMINE 100 MG TAB PO SCH (08:46)
[2021-06-24] MEDS: PANTOPRAZOLE 40 MG TABEC PO SCH (08:48)
[2021-06-24] MEDS ORDERED: levETIRAcetam 500 MG TAB PO SCH (09:00)
--- NOTE | 2021-06-24 09:00 | NUR ---
PATIENT TOOK ALL DUE MEDICATION TOLERATED WELL.
[2021-06-24] MEDS: levETIRAcetam 500 MG TAB PO SCH ×2 (09:13→20:53)
--- NOTE | 2021-06-24 11:24 | NUR ---
PATIENT GOES OUT THE ROOM AND WHEN ASKED TO GO BACK TO BED NOTED WITH AGITATION CALLED SECURITY BUT STILL NOTED WITH AGITATION GIVEN ATIVAN IV.
--- NOTE | 2021-06-24 11:37 | NUR ---
DR. TOBAR AT BED SIDE.
--- NOTE | 2021-06-24 14:30 | NUR ---
PATIENT STATING TO GET AGITATED AND NOT FOLLOWING DIRECTION. GIVEN ATIVAN IM.
[2021-06-24] MEDS: NICOTINE TRANSD SYS 14 MG/24 HR PATCH TD SCH (14:34)
[2021-06-24] MEDS: HYDROcodone/APAP 7.5/325 MG 1 TAB PO PRN (16:44)
--- NOTE | 2021-06-24 16:45 | NUR ---
PATIENT COMPLAIN OF PAIN MEDICATED ORDER WITH HELP.
--- NOTE | 2021-06-24 19:10 | NUR ---
GAVE REPORT TO SUPERVISOR CONTINGENTS NURSE FOR CONTINUITY OF CARE. ALERT SITTING ON TOILET. GIVEN DSS NOT EFFECTING YET, ENCOURAGE TO INCREASE FLUID INTAKE TOLERATED.
[2021-06-24 20:00] VITALS: BP 105/60
--- NOTE | 2021-06-24 20:08 | NUR ---
RECEIVED REPORT FROM AM NURSE YOMAIRA MELTON FOR CONTINUITY OF CARE. PT ALERT ON TOILET NO EFFECT FROM STOOL SOFTENER YET. 1:1 SITTER REMAINS OUTSIDE ROOM. ALL SAFETY MEASURES IN PLACE. WILL CONTINUE TO MONITOR.
--- NOTE | 2021-06-24 21:00 | NUR ---
HS MEDS GIVEN. VSS AFEBRILE. PT COOPERATIVE. I:1 SITTER REMAINS OUTSIDE ROOM . WILL CONTINUE TO MONITOR.
[2021-06-25] MEDS: HYDROcodone/APAP 7.5/325 MG 1 TAB PO PRN (02:10)
--- NOTE | 2021-06-25 02:12 | NUR ---
PT C/O 610 PAIN IN R FOREARM. MEDICATED WITH 1 TAB NORCO 7.5/325. 1:! SITTER OUTSIDE ROOM. ALL SAFETY MEASURES IN PLACE.
--- NOTE | 2021-06-25 03:10 | NUR ---
PT SLEEPING PAIN NOW A ZERO. ALL SAFETY MEASURES IN PLACE. 1:1 sITTER OUTSIDE ROOM. PT QUIET AT THIS TIME.
[2021-06-25 04:00] VITALS: BP 91/68
--- NOTE | 2021-06-25 06:00 | NUR ---
PT RESTING IN BED QUIET. NAD. 1:1 SITTER REMAINS OUTSIDE ROOM. ALL SAFETY MEASURES IN PLACE.
[2021-06-25 06:34] LABS: BASOPHILS % (AUTO) 0.5 % (0.0-2.0); EOSINOPHILS # (AUTO) 0.1 K/uL (0-0.4); EOSINOPHILS % (AUTO) 3.2 % (0.0-4.0); HEMATOCRIT 35.8 % (36-52); HEMOGLOBIN 12.1 g/dL (12.0-18.0); LYMPHOCYTES # (AUTO) 1.1 K/uL (2.0-11.5); LYMPHOCYTES % (AUTO) 32.7 % (20.5-51.1); MEAN CORPUSCULAR HEMOGLOBIN 30 pg (27-31); MEAN CORPUSCULAR HGB CONC 34 g/dL (33-37); MEAN CORPUSCULAR VOLUME 89.9 fL (80-94); MONOCYTES # (AUTO) 0.4 K/uL (0.8-1.0); NEUTROPHILS # (AUTO) 1.8 K/uL (1.8-7.7); NEUTROPHILS % (AUTO) 52.6 % (42.2-75.2); PLATELET COUNT (AUTO) 152 K/uL (140-450); RED BLOOD CELL COUNT(AUTO) 3.98 MIL/uL (4.20-6.10); RED CELL DISTRIBUTION WIDTH 13.9 % (11.6-13.7); WHITE BLOOD COUNT (AUTO) 3.5 K/uL (4.8-10.8)
[2021-06-25 06:48] LABS: ANION GAP 9.6 (8-16); CARBON DIOXIDE 29.7 mmol/L (21-32); CREATININE 0.7 mg/dL (0.6-1.3); POTASSIUM 3.3 mmol/L (3.5-5.1)
--- NOTE | 2021-06-25 07:50 | NUR ---
ENDORSED PT REPORT TO AM NURSE JADA RN FOR CONTINUITY OF CARE. PT IS STABLE.
[2021-06-25 08:00] VITALS: BP 151/105
--- NOTE | 2021-06-25 08:01 | NUR ---
RECEIVE PATIENT REST IN BED W/O ANY IV ACCESS. 5150 HOLD AND [employer] POLICE STATION INFORMED. POLICE IS HERE FOR RENEW THE HOLD. WILL CONTINUE TO MONITOR PATIENT.
[2021-06-25] MEDS: NICOTINE TRANSD SYS 14 MG/24 HR PATCH TD SCH ×2 (09:08→16:52)
[2021-06-25] MEDS: PANTOPRAZOLE 40 MG TABEC PO SCH (09:08)
[2021-06-25] MEDS: levETIRAcetam 500 MG TAB PO SCH ×2 (09:09→20:23)
[2021-06-25] MEDS: THIAMINE 100 MG TAB PO SCH (09:09)
[2021-06-25] MEDS: FOLIC ACID 1 MG TAB PO SCH (09:10)
[2021-06-25] MEDS: chlordiazePOXIDE 25 MG CAP PO SCH ×3 (09:10→17:12)
[2021-06-25] MEDS: MULTIVITAMIN 1 TAB PO SCH (09:21)
[2021-06-25] MEDS: LORazepam 2 MG/ML VIAL IM/IVP PRN (09:43)
[2021-06-25 16:00] VITALS: BP 133/99
--- NOTE | 2021-06-25 19:30 | NUR ---
ENDORSE PT TO PM SHIFT NURSE W/ STABLE CONDITION, NO ACUTE DISTRESS NOTED; NO IV ACCESS.
--- NOTE | 2021-06-25 19:36 | NUR ---
RECEIVED BEDSIDE REPORT FROM DAY SHIFT NURSE FOR CONTINUITY OF CARE. PATIENT IS AWAKE, ALERT, AND COOPERATIVE. RESPIRATION EVEN UNLABORED ON ROOM AIR. NO DISTRESS NOTED. SKIN IS WARM AND DRY. NO IV SITE NOTED, MD AWARE. PLAN OF CARE DISCUSSED. ALL SAFETY MEASURES IN PLACE. BED IS AT LOW POSITION. SITTER AT BEDSIDE. WILL CONTINUE TO MONITOR.
[2021-06-25 20:00] VITALS: BP 127/94
--- NOTE | 2021-06-25 20:21 | NUR ---
INITIAL ASSESSMENT DONE, RIGHT SIDED WEAKNESS NOTED ON PATIENT ARM AND LEGS. WILL CONTINUE TO MONITOR
--- NOTE | 2021-06-25 20:30 | NUR ---
ALL SCHEDULED MEDS GIVEN PER ORDER. WILL CONTINUE TO MONITOR
--- NOTE | 2021-06-25 20:49 | NUR ---
PATIENT WANTS TO GET UP TO GO TO THE BATHROOM, PATIENT GAIT UNSTEADY, HELPED PATIENT AMBULATE TO THE BATHROOM WITH ANOTHER RN. WILL CONTINUE TO MONITOR.
[2021-06-25] MEDS: ZOLPIDEM 5 MG TAB PO PRN (21:06)
--- NOTE | 2021-06-25 21:15 | NUR ---
PATIENT COMPLAINED OF NOT ABLE TO FALL ASLEEP. PULLED OUT PRN AMBIEN 5MG PO, UPON ADMINISTRATION PT CHANGED HIS MIND AND DOES NOT WANT TO TAKE THE MEDICATION ANYMORE. NOTIFIED CHARGE NURSE ABOUT THE SITUATION AND WASTED THE MEDICATION WITH CHARGE NURSE.
--- NOTE | 2021-06-25 22:50 | NUR ---
PT SLEEPING RESPIRATION EVEN UNLABORED ON ROOM AIR. SITTER AT BEDSIDE
--- NOTE | 2021-06-26 00:14 | NUR ---
PT ASLEEP, SITTER AT BEDSIDE
--- NOTE | 2021-06-26 02:08 | NUR ---
AMBULATED THE PATIENT TO THE BATHROOM
[2021-06-26 04:00] VITALS: BP 127/96
--- NOTE | 2021-06-26 05:40 | NUR ---
PATIENT REFUSED BLOOD DRAW EXPLAINED THE PURPOSE X2 STILL REFUSED. WILL TRY AGAIN LATER
--- NOTE | 2021-06-26 06:56 | NUR ---
ENDORSED PATIENT TO DAY SHIFT NURSE FOR CONTINUITY OF CARE. SITTER AT BEDSIDE
--- NOTE | 2021-06-26 07:15 | NUR ---
RECEIVED ENDORSEMENT FROM PM SHIFT NURSE WHILE PATIENT IS STABLE W/O IV ACCESS. WILL CONTINUE TO MONITOR.
[2021-06-26 08:00] VITALS: BP 153/107
[2021-06-26] MEDS: levETIRAcetam 500 MG TAB PO SCH ×2 (09:22→21:49)
[2021-06-26] MEDS: NICOTINE TRANSD SYS 14 MG/24 HR PATCH TD SCH (09:22)
[2021-06-26] MEDS: chlordiazePOXIDE 25 MG CAP PO SCH ×3 (09:23→17:47)
[2021-06-26] MEDS: THIAMINE 100 MG TAB PO SCH (09:23)
[2021-06-26] MEDS: MULTIVITAMIN 1 TAB PO SCH (09:24)
[2021-06-26] MEDS: FOLIC ACID 1 MG TAB PO SCH (09:25)
[2021-06-26] MEDS: PANTOPRAZOLE 40 MG TABEC PO SCH (09:25)
--- NOTE | 2021-06-26 10:45 | NUR ---
PSYCHO-DOCTOR, DR. Patino CALLED AND DID VISUAL VISIT FOR PATIENT. PATIENT STATES HIS ISSUE OF R. SIDE WEAKNESS AND THAT BOTHER HIM A LOT. WILL F/U
[2021-06-26] MEDS: LORazepam 2 MG/ML VIAL IM/IVP PRN (10:56)
--- NOTE | 2021-06-26 19:23 | NUR ---
ENDORSE PT TO PM SHIFT NURSE WHILE PATIENT IS STABLE W/O IV ACCESS. ON 515 RESTRICTION DAY 2.
--- NOTE | 2021-06-26 19:24 | NUR ---
RECEIVED BEDSIDE REPORT FROM DAY SHIFT NURSE FOR CONTINUITY OF CARE.
[2021-06-26] MEDS: HYDROcodone/APAP 7.5/325 MG 1 TAB PO PRN (19:44)
--- NOTE | 2021-06-26 19:44 | NUR ---
PATIENT COMPLAINTS OF PAIN 6/10 ON RIGHT ARM. PAIN MEDICATION ADMINISTERED ORDERED.
[2021-06-27] MEDS: LORazepam 2 MG/ML VIAL IM/IVP PRN ×2 (00:39→15:17)
--- NOTE | 2021-06-27 00:39 | NUR ---
PATIENT COULD NOT SLEEP AND AGITATED, MEDICATION FOR AGITATION ADMINISTERED ORDERED.
[2021-06-27 04:13] VITALS: BP 120/89
[2021-06-27 06:51] LABS: BASOPHILS % (AUTO) 0.6 % (0.0-2.0); EOSINOPHILS # (AUTO) 0.1 K/uL (0-0.4); EOSINOPHILS % (AUTO) 3.3 % (0.0-4.0); HEMATOCRIT 39.1 % (36-52); HEMOGLOBIN 13.1 g/dL (12.0-18.0); LYMPHOCYTES # (AUTO) 1.4 K/uL (2.0-11.5); LYMPHOCYTES % (AUTO) 37.6 % (20.5-51.1); MEAN CORPUSCULAR HEMOGLOBIN 30 pg (27-31); MEAN CORPUSCULAR HGB CONC 34 g/dL (33-37); MEAN CORPUSCULAR VOLUME 89.3 fL (80-94); MONOCYTES # (AUTO) 0.4 K/uL (0.8-1.0); MONOCYTES % (AUTO) 11.7 % (1.7-9.3); NEUTROPHILS # (AUTO) 1.7 K/uL (1.8-7.7); NEUTROPHILS % (AUTO) 46.8 % (42.2-75.2); PLATELET COUNT (AUTO) 167 K/uL (140-450); RED BLOOD CELL COUNT(AUTO) 4.38 MIL/uL (4.20-6.10); RED CELL DISTRIBUTION WIDTH 14.1 % (11.6-13.7); WHITE BLOOD COUNT (AUTO) 3.6 K/uL (4.8-10.8)
[2021-06-27 07:05] LABS: ANION GAP 12.2 (8-16); CARBON DIOXIDE 28.6 mmol/L (21-32); CREATININE 0.9 mg/dL (0.6-1.3); POTASSIUM 3.8 mmol/L (3.5-5.1)
--- NOTE | 2021-06-27 07:45 | NUR ---
PATIENT IS ASLEEP, AROUSABLE ON STIMULI. NO COMPLAINT OF PAIN OR DISCOMFORT. PATIENT IS STABLE. ENDORSED TO DAY SHIFT NURSE FOR CONTINUITY OF CARE.
--- NOTE | 2021-06-27 07:46 | NUR ---
GOT REPORT FROM NIGHT NURSE, PT AWAKE SITTER AT BEDSIDE.[id number]
[2021-06-27] MEDS: FOLIC ACID 1 MG TAB PO SCH (09:07)
[2021-06-27] MEDS: levETIRAcetam 500 MG TAB PO SCH ×2 (09:08→21:29)
[2021-06-27] MEDS: NICOTINE TRANSD SYS 14 MG/24 HR PATCH TD SCH ×3 (09:09→10:31)
[2021-06-27] MEDS: chlordiazePOXIDE 25 MG CAP PO SCH ×4 (09:09→16:49)
[2021-06-27] MEDS: THIAMINE 100 MG TAB PO SCH (09:10)
[2021-06-27] MEDS: MULTIVITAMIN 1 TAB PO SCH (09:10)
[2021-06-27] MEDS: PANTOPRAZOLE 40 MG TABEC PO SCH (09:10)
[2021-06-27 10:00] VITALS: BP 131/91
[2021-06-27] MEDS ORDERED: KEP500 PO (10:26)
[2021-06-27] MEDS ORDERED: NICO14TD30 TD (10:26)
[2021-06-27] MEDS ORDERED: LIB25 PO (10:26)
[2021-06-27] MEDS ORDERED: THE PO (10:26)
[2021-06-27] MEDS ORDERED: FOLI1TAB90 PO (10:26)
[2021-06-27] MEDS ORDERED: THIA-34 PO (10:26)
--- NOTE | 2021-06-27 10:30 | NUR ---
PAT AGITATED, ATIVAN GIVEN ORDERED.[email or web address]
[2021-06-27 16:39] VITALS: BP 128/65
--- NOTE | 2021-06-27 16:51 | NUR ---
PT REFUSED 0 MED, TRIED TO CONVINCE BUT FIRMLY SAYS NO.[email or web address]
--- NOTE | 2021-06-27 17:35 | NUR ---
PT NOW SLEEPING, SITTER AT THE DOOR , PT LOOKS COMFORTABLE. [id number]
--- NOTE | 2021-06-27 18:26 | NUR ---
PT UP EATING DINNER WITHOUT HELP,USING THE LEFT ARM. THE RIGHT ARM IS IN BRACES.[id number]
[2021-06-27] MEDS: HYDROcodone/APAP 7.5/325 MG 1 TAB PO PRN (18:39)
--- NOTE | 2021-06-27 19:35 | NUR ---
REPORT GIVEN BY AM NURSE. PATIENT IN BED WELL RESTED ON ROOM AIR. PT WITH SITTER. NO SOB NOTED. SAFETY MEASURES IN PLACE. CALL LIGHT WITHIN REACH. DENIES PAIN. WILL CONTINUE TO MONITOR PT.
--- NOTE | 2021-06-27 21:30 | NUR ---
SCHEDULED MEDICATIONS ADMINISTERED ORDERED.
[2021-06-28] VITALS: BP 112/81
[2021-06-28] MEDS: ACETAMINOPHEN 325 MG TAB PO PRN (01:19)
--- NOTE | 2021-06-28 01:19 | NUR ---
COMPLAINED OF HEADACHE, MEDICATED
--- NOTE | 2021-06-28 05:00 | NUR ---
PATIENT REFUSED BLOOD DRAW.
--- NOTE | 2021-06-28 07:30 | NUR ---
RECEIVED REPORT FROM FLASH OVEN OPERATOR NURSE. PT RESTING IN BED, EYES CLOSED. NO S/S OF DISTRESS. BREATHING SYMMETRICAL. ALL SAFETY MEASURES IN PLACE. SITTER AT BEDSIDE
--- NOTE | 2021-06-28 07:35 | NUR ---
BEDSIDE REPORT GIVEN TO AM NURSE FOR CONTINUITY OF CARE. PT IS STABLE.
[2021-06-28 08:00] VITALS: BP 114/84
[2021-06-28] MEDS: FOLIC ACID 1 MG TAB PO SCH (09:25)
[2021-06-28] MEDS: PANTOPRAZOLE 40 MG TABEC PO SCH (09:25)
[2021-06-28] MEDS: MULTIVITAMIN 1 TAB PO SCH (09:26)
[2021-06-28] MEDS: THIAMINE 100 MG TAB PO SCH (09:26)
[2021-06-28] MEDS: chlordiazePOXIDE 25 MG CAP PO SCH ×3 (09:26→17:00)
[2021-06-28] MEDS: levETIRAcetam 500 MG TAB PO SCH ×2 (09:29→21:00)
--- NOTE | 2021-06-28 09:35 | NUR ---
REMOVED NICOTINE PATCH. PT STATED HE DID NOT KNOW HE HAD ONE AND DOES NOT WANT ANOTHER APPLIED. NO S/S OF DISTRESS. ALL SAFETY MEASURES INPLCA Addendum: 06/28/21 at 0936 by Shiva Adler RN RN IN PLACE
--- NOTE | 2021-06-28 10:39 | NUR ---
06/28/21 RD INITIAL ASSESSMENT COMPLETED PLEASE REFER TO NUTRITION ASSESSMENT UNDER CARE ACTIVITY FOR ESTIMATED NUTRITIONAL NEEDS. 1. CONTINUE REGULAR DIET TOLERATED -IF PO INTAKE IS < 75%, RECOMMEND ORAL SUPPLEMENTS 2. RD TO FOLLOW-UP 7 DAYS, LOW RISK PAO BELL, RD
--- NOTE | 2021-06-28 12:06 | NUR ---
PT UP AND WALKING, DRAGGING RIGHT SIDE OF BODY. PT ASKING FOR MEDICATION BUT UNABLE TO RELAY WHAT TYPE OF MEDICATION. PT DENIES PAIN AT THIS TIME. WILL CONTINUE TO MONITOR.
--- NOTE | 2021-06-28 13:25 | NUR ---
PT BEGAN TO TAKE PRESCRIBED MEDICATION AND SPIT OUT PART OF PILL. REFUSING TO TAKE ANY MORE MEDS. PT STATED "NO DOCTORS, NO PILLS"
--- NOTE | 2021-06-28 13:46 | NUR ---
PSYCH CONSULT COMPLETED. THE PSYCH HOLD WAS NOT EXTENDED AND PATIENT WAS CLEARED PSYCHIATRICALLY. PSYCH RECOMMENDATION IS TO DISCHARGE TO A REHAB/SNF FACILITY. PATIENT AGREES AND WOULD LIKE TO GO TO A FACILITY UPON DISCHARGE. WAITING ON FOLLOW UP FROM CASE MANAGEMENT FOR PLACEMENT. DISCUSSED WITH MST DIRECTOR. DIRECTOR WILL FOLLOW UP WITH JOSELUIS MARTINEZ. ALL SAFETY MEASURES IN PLACE. PROVIDED PT WITH COLORING SUPPLIES AND DISCUSSED ROOM CHANGE WITH CHARGE FOR PT COMFORT
[2021-06-28 16:00] VITALS: BP 141/87
--- NOTE | 2021-06-28 16:15 | NUR ---
PT FELL IN ROOM, WITNESSED BY RIBBING MACHINE OPERATOR. PER RIBBING MACHINE OPERATOR, SHE WAS ATTEMPTING TO ASSIST PT TO RESTROOM AND BACK TO BED WHEN PT BEGAN TO "BOOK IT" TOWARDS THE DOOR. PT UNSTEADY DUE T RIGHT SIDED IMPAIRMENT, PT FELL ON BUTT AND LEANED BACKWARDS HITTING HEAD. RIBBING MACHINE OPERATOR STATES PATIENT "GRAZED" HEAD ON CLOSET, ANOTHER WITNESSING NURSE STATED "PT HIT HIS HEAD HARD", AND PT STATES HE DID NOT HIT HIS HEAD DURING FALL AND IS IN NO PAIN AT THIS TIME. PT INFORMED TO COMMUNICATE WITH STAFF IF ANY PAIN ARISES. WILL NOTIFY MD AND RECOMMEND HEAD CT. NO S/S OF DISTRESS NOTED. PT STATES HE IS NOT LEAVING AND WANTS TO BE PLACED IN FACILITY WHEN QUESTIONED ABOUT ATTEMPTING TO LEAVE.
--- NOTE | 2021-06-28 17:51 | NUR ---
PT REFUSED MEDICATION PRESCRIBED. EDUCATED PT ON MEDICATIONS, PT VERBALIZED UNDERSTANDING AND STATED "NO PILLS". NO S/S OF DISTRESS. ALL SAFETY MEASURES IN PLACE
--- NOTE | 2021-06-28 18:51 | NUR ---
PT IN WHEELCHAIR READY FOR TRANSPORT TO CT SCAN.
--- NOTE | 2021-06-28 19:15 | NUR ---
ENDORSED PT TO BATH HOUSE ATTENDANT NURSE JAIR ADLER. PT OFF UNIT
--- NOTE | 2021-06-28 19:20 | NUR ---
RECEIVED BEDSIDE REPORT FROM DAY SHIFT RN FOR CONTINUITY OF CARE. PT IS AWAKE IN BED. NOT IN ANY DISTRESS. BREATHING EVEN AND UNLABORED. NO IV SITE. NO COMPLAINS FROM THE PT. ALL SAFETY MEASURES TAKEN. WILL CONTINUE TO MONITOR THE PT.
--- NOTE | 2021-06-28 19:41 | NUR ---
PT HAS NEURO ISSUE - FALL RISK - REMINDS NAYELY SHARMA TO PUT PT ON BED ALARM ON
[2021-06-28 20:00] VITALS: BP 137/64
--- NOTE | 2021-06-28 22:52 | NUR ---
ENDORSED PT TO SENIOR ELECTRONICS TECHNICIAN RN FRANNY FOR CONTINUITY OF CARE. PT IS STABLE.
--- NOTE | 2021-06-28 22:53 | NUR ---
GET THE REPORT FROM NIGHT NURSE CSAR, PATIENT IS LYING ON BED, PATIENT IS ALERT AND ORIENTED X1,VITAL SIGN IS WITHIN NORMAL RANGE ,WILL CONTINUE TO MONITOR PATIENT. ,
--- NOTE | 2021-06-28 23:10 | NUR ---
PADDED THE BOTH SIDE RAILS DUE TO PATIENT IS HIGH RISK FOR SEIZURE, WILL CONTINUE TO MONITOR PATIENT.
--- NOTE | 2021-06-29 00:07 | NUR ---
PATIENT IS LYING ON BED, WILL CONTINUE TO MONITOR PATIENT.
[2021-06-29] MEDS: HYDROcodone/APAP 7.5/325 MG 1 TAB PO PRN (00:43)
--- NOTE | 2021-06-29 00:50 | NUR ---
PATIENT IS COMPLAINING OF PAIN /, NORCO7.5/325 MG PRN GIVEN PER DOCTOR ORDER,WILL REASSESS PAIN LAVAL IN HOUR, PATIENT BLOOD PRESSURE IS 116/91 , WILL CONTINUE TO MONITOR THE PATIENT.
[2021-06-29 04:00] VITALS: BP 117/86
--- NOTE | 2021-06-29 04:58 | NUR ---
PATIENT IS LYING ON BED, NO ANY COMPLAIN OF PAIN OR SHORTNESS OF BREATH AT THIS TIME, VITAL SIGN IS WITHIN THE NORMAL RANGE ,CALL LIGHT IS WITHIN THE REACH, WILL CONTINUE TO MONITOR PATIENT.
--- NOTE | 2021-06-29 07:25 | NUR ---
GAVE REPORT TO MORNING NURSE RONNY FOR CONTINUOS OF CARE, PATIENT IS STABLE.
--- NOTE | 2021-06-29 07:26 | NUR ---
RECEIVED REPORT FROM SENIOR SITE MANAGER NURSE FOR CONTINUITY OF CARE. PT IN BED SLEEPING AT THIS TIME. RESPIRATIONS ARE EVEN AND UNLABORED ON ROOM AIR. NO SIGNS OF DISTRESS NOTED. PT IS ALERT AND ORIENTED X1, SPEECH MUMBLED. ABLE TO MAKE BASIC NEEDS KNOWN. PT IS ON REGULAR DIET, ABD IS NONTENDER, NONDISTENDED WITH BOWEL SOUNDS PRESENT. SKIN IS WARM, DRY, AND INTACT. NO IV ACCESS. ALL SAFETY MEASURES IN PLACE. WILL CONTINUE TO MONITOR.
[2021-06-29 08:00] VITALS: BP 126/81
[2021-06-29] MEDS: NICOTINE TRANSD SYS 14 MG/24 HR PATCH TD SCH (09:00)
[2021-06-29] MEDS: PANTOPRAZOLE 40 MG TABEC PO SCH (09:16)
[2021-06-29] MEDS: MULTIVITAMIN 1 TAB PO SCH (09:16)
[2021-06-29] MEDS: FOLIC ACID 1 MG TAB PO SCH (09:16)
[2021-06-29] MEDS: THIAMINE 100 MG TAB PO SCH (09:16)
[2021-06-29] MEDS: chlordiazePOXIDE 25 MG CAP PO SCH ×3 (09:16→17:00)
[2021-06-29] MEDS: levETIRAcetam 500 MG TAB PO SCH ×2 (09:16→22:00)
--- NOTE | 2021-06-29 09:17 | NUR ---
ADMINISTERED SCHEDULED MEDICATION. EDUCATED PT REGARDING MEDS ADMINISTERED. WILL CONTINUE TO MONITOR.
--- NOTE | 2021-06-29 13:24 | NUR ---
PT ATTEMPTING TO GET OUT OF BED TO USE RESTROOM. ASSISTED PT TO RESTROOM. PT TOLERATED WELL. WILL CONTINUE TO MONITOR.
[2021-06-29 16:00] VITALS: BP 123/83
--- NOTE | 2021-06-29 16:58 | NUR ---
DID ROUNDS ON PT. PT IN BED RESTING AT THIS TIME. WILL CONTINUE TO MONITOR.
--- NOTE | 2021-06-29 18:23 | NUR ---
PT WANTED TO GET UP AND TRY TO EAT DINNER IN WHEELCHAIR. ASSISTED PT TO WHEELCHAIR. PT TOLERATING WELL. WILL CONTINUE TO MONITOR.
--- NOTE | 2021-06-29 19:40 | NUR ---
ENDORSED PT TO CALCULUS PROFESSOR NURSE FOR CONTINUITY OF CARE. PT IS STABLE.
--- NOTE | 2021-06-29 19:43 | NUR ---
RECEIVED PT REPORT FROM NURSE LINH JEFFERSON FOR CONTINUITY OF CARE. PT IS STABLE IN BED. A&OX1. DENIES PAIN. ON RM AIR. NAD. RR EVEN AND UNLABORED. GI INTACT. SKIN INTACT. PT IS AMBULATORY. AND CONTINENT. ALL SAFETY MEASURES IN PLACE. BED LOW AND LOCKED POSITION. WILL CONTINUE TO MONITOR.
--- NOTE | 2021-06-29 21:35 | NUR ---
MATEO PRASAD TAKEN WITH SIPS OF WATER. RR EVEN AND UNLABORED WITH EQUAL CHEST RISE. BED ALARM ON. WILL CONTINUE TO MONITOR.
[2021-06-30] VITALS: BP 125/87
--- NOTE | 2021-06-30 07:00 | NUR ---
PT SLEPT SOUNDLY ALL SHIFT. CALLED FOR ASSISTANCE. UP TO BATHROOM. VOIDED. HAND WIPES SUPPLIED. ASSISTED BACK TO BED. FREQ ROUNDS WILL CONTINUE TO OBSERVE.
--- NOTE | 2021-06-30 07:10 | NUR ---
RECEIVED REPORT FROM ASSOCIATE FINANCIAL PLANNER NURSE FOR CONTINUITY OF CARE. PT IN BED SLEEPING AT THIS TIME. RESPIRATIONS ARE EVEN AND UNLABORED ON ROOM AIR. NO SIGNS OF DISTRESS NOTED. PT IS ALERT AND ORIENTED X1, SPEECH MUMBLED. ABLE TO MAKE BASIC NEEDS KNOWN. PT IS ON REGULAR DIET, ABD IS NONTENDER, NONDISTENDED WITH BOWEL SOUNDS PRESENT. SKIN IS WARM, DRY, AND INTACT. NO IV ACCESS. ALL SAFETY MEASURES IN PLACE. WILL CONTINUE TO MONITOR.
[2021-06-30 08:00] VITALS: BP 123/82
[2021-06-30] MEDS: NICOTINE TRANSD SYS 14 MG/24 HR PATCH TD SCH (09:00)
[2021-06-30] MEDS: levETIRAcetam 500 MG TAB PO SCH ×2 (09:09→20:08)
[2021-06-30] MEDS: MULTIVITAMIN 1 TAB PO SCH (09:09)
[2021-06-30] MEDS: PANTOPRAZOLE 40 MG TABEC PO SCH (09:09)
[2021-06-30] MEDS: THIAMINE 100 MG TAB PO SCH (09:09)
[2021-06-30] MEDS: FOLIC ACID 1 MG TAB PO SCH (09:09)
--- NOTE | 2021-06-30 09:11 | NUR ---
ADMINISTERED ALL SCHEDULED MEDICATIONS. PT REFUSED NICOTINE PATCH. WILL CONTINUE TO MONITOR.
--- NOTE | 2021-06-30 11:46 | NUR ---
PT ATTEMPTING TO WALK AROUND UNIT. RE-ORIENTED PT BACK TO ROOM. RE-EDUCATED PT REGARDING FALL RISK STATUS. PT UPSET. CONTINUES TO ATTEMPT TO WALK, [place] GAIT IS UNSTEADY. BROUGHT PT BACK TO ROOM. ASSISTED PT INTO BED. WILL CONTINUE TO MONITOR.
--- NOTE | 2021-06-30 12:15 | NUR ---
PHYSICAL THERAPY CO-SIGN The Physical Therapy Progress Notes documented by Bottle Assembler have been reviewed. Reviewed/Co-Signed by: Blanca Montalvo Documentation Done by: NIKKY GUO PTA Addendum: 06/30/21 at 1215 by Blanca Montalvo PT Amended: Links added.
[2021-06-30] MEDS: HYDROcodone/APAP 5/325 MG 1 TAB TAB PO PRN (14:31)
--- NOTE | 2021-06-30 14:31 | NUR ---
PT COMPLAINING OF PAIN. MEDICATED PER MD ORDERS. WILL CONTINUE TO MONITOR.
--- NOTE | 2021-06-30 15:31 | NUR ---
WENT TO RE-ASSESS PT, PT IN BED SLEEPING AT THIS TIME. WILL CONTINUE TO MONITOR.
[2021-06-30 16:00] VITALS: BP 126/85
--- NOTE | 2021-06-30 17:06 | NUR ---
DID ROUNDS ON PT. PT IN BED STILL RESTING AT THIS TIME. RESPIRATIONS ARE EVEN AND UNLABORED. NO SIGNS OF DISTRESS NOTED. WILL CONTINUE TO MONITOR.
--- NOTE | 2021-06-30 19:27 | NUR ---
ENDORSED PT TO BRAND COORDINATOR NURSE FOR CONTINUITY OF CARE. PT IS STABLE.
--- NOTE | 2021-06-30 19:30 | NUR ---
RECEIVED PT REPORT FROM NURSE RONNY FOR CONTINUITY OF CARE. PT IS STABLE IN BED. A&OX1. DENIES PAIN. ON RM AIR. NAD.RR EVEN AND UNLABORED. GI INTACT. PT SKIN IS INTACT. PT IS AMBULATORY WITH STAND BY ASSIST. CONTINENT. ALL SAFETY MEASURES IN PLACE. CLOSE TO NURSES' STATION. FREQ ROUNDS.
[2021-07-01] VITALS: BP 122/84
--- NOTE | 2021-07-01 | NUR ---
FREQ ROUNDS . CHECKED PT STABLE AND ASLEEP IN BED. RR EVEN AND UNLABORED WITH EQUAL CHEST RISE. ALL SAFETY MEASURES IN PLACE. BED LOW AND LOCKED POSITION. CALL LIGHT WITHIN REACH. MOVED CLOSER TO THE NURSING. STATION.
--- NOTE | 2021-07-01 05:41 | NUR ---
FREQ ROUNDS. PT STABLE . SLEPT IN INTERVALS. UP TO BATHROOM WITH ASSIST OF ONE PERSON. PT TRIES TO COMMUNICATE, GETS FRUSTRATED AND CONFABULATES. RR EVEN AND UNLABORED WITH EQUAL CHEST RISE. NAD. BED ALARM ON. WILL CONTINUE TO MONITOR.
--- NOTE | 2021-07-01 07:32 | NUR ---
PT IS RESTING COMFORTABLE IN BED, GOT REPORT FROM THE NIGHT NURSE.[email or web address]
[2021-07-01 08:00] VITALS: BP 133/92
[2021-07-01] MEDS: NICOTINE TRANSD SYS 14 MG/24 HR PATCH TD SCH (08:37)
[2021-07-01] MEDS: MULTIVITAMIN 1 TAB PO SCH (08:37)
[2021-07-01] MEDS: THIAMINE 100 MG TAB PO SCH (08:38)
[2021-07-01] MEDS: FOLIC ACID 1 MG TAB PO SCH (08:38)
[2021-07-01] MEDS: PANTOPRAZOLE 40 MG TABEC PO SCH (08:38)
[2021-07-01] MEDS: levETIRAcetam 500 MG TAB PO SCH ×2 (08:38→21:18)
[2021-07-01] MEDS: HYDROcodone/APAP 5/325 MG 1 TAB TAB PO PRN ×3 (09:41→15:01)
[2021-07-01 16:00] VITALS: BP 140/118
[2021-07-02] VITALS: BP 123/86
[2021-07-02] MEDS: HYDROcodone/APAP 5/325 MG 1 TAB TAB PO PRN ×3 (06:43→16:54)
--- NOTE | 2021-07-02 06:43 | NUR ---
PT COMPLAINTS OF RIGHT ARM PAIN 07/21, PAIN MED ADMINISTERED ORDERED
--- NOTE | 2021-07-02 07:32 | NUR ---
got report from night nurse, pt sitting on bed no discomfort noted.[email or web address]
[2021-07-02] MEDS: levETIRAcetam 500 MG TAB PO SCH ×2 (08:52→20:40)
[2021-07-02] MEDS: PANTOPRAZOLE 40 MG TABEC PO SCH (08:53)
[2021-07-02] MEDS: MULTIVITAMIN 1 TAB PO SCH (08:53)
[2021-07-02] MEDS: FOLIC ACID 1 MG TAB PO SCH (08:53)
[2021-07-02] MEDS: THIAMINE 100 MG TAB PO SCH (08:53)
[2021-07-02] MEDS: NICOTINE TRANSD SYS 14 MG/24 HR PATCH TD SCH (08:54)
[2021-07-02 16:55] VITALS: BP 150/93
--- NOTE | 2021-07-02 19:20 | NUR ---
RECEIVED BEDSIDE REPORT FROM DAY SHIFT NURSE FOR CONTINUITY OF PT CARE. PT IS AWAKE, ALERT AND NO COMPLAINT OF PAIN OR DISCOMFORT.
--- NOTE | 2021-07-02 22:15 | NUR ---
PATIENT AMBULATES TO RESTROOM INDEPENDENTLY SAFELY WITH SUPERVISION.
--- NOTE | 2021-07-03 00:11 | NUR ---
PT IS ON STABLE CONDITION AND ASLEEP.
[2021-07-03] MEDS: HYDROcodone/APAP 5/325 MG 1 TAB TAB PO PRN ×2 (06:14→12:50)
--- NOTE | 2021-07-03 06:14 | NUR ---
PT COMPLAINTS OF PAIN ON RIGHT ARM 07/21, PAIN MEDICATION ADMINISTERED ORDERED
--- NOTE | 2021-07-03 07:10 | NUR ---
ENDORSED PT FROM NIGHTSHIFT NURSE FOR CONTINUITY OF CARE, DISCUSSED PLAN OF CARE. PT STABLE, CURRENTLY SLEEPING. PT STABLE, SKIN INTACT, NO IV ACCESS NOTED, A/OX1 WITH SLURRED SPEECH, STEADY GAIT WITH BRP. CONTINENT OF THE BOWEL AND BLADDER. WILL CONTINUE TO MONITOR FOR ANY ABRUPT CHANGES IN BEHAVIOR.
--- NOTE | 2021-07-03 07:30 | NUR ---
PATIENT IS LAYING DOWN ON THE BED AND RELAX. PAIN ON RIGHT ARM IS GONE, PT IS SMILE TO NURSE. PT IS ON STABLE CONDITION. ENDORSED TO DAY SHIFT NURSE FOR CONTINUITY OF PT CARE.
[2021-07-03 08:00] VITALS: BP 126/88
[2021-07-03] MEDS: NICOTINE TRANSD SYS 14 MG/24 HR PATCH TD SCH (08:39)
[2021-07-03] MEDS: PANTOPRAZOLE 40 MG TABEC PO SCH (08:39)
[2021-07-03] MEDS: MULTIVITAMIN 1 TAB PO SCH (08:40)
[2021-07-03] MEDS: THIAMINE 100 MG TAB PO SCH (08:40)
[2021-07-03] MEDS: levETIRAcetam 500 MG TAB PO SCH ×2 (08:41→20:28)
[2021-07-03] MEDS: FOLIC ACID 1 MG TAB PO SCH (08:42)
--- NOTE | 2021-07-03 09:16 | NUR ---
PHYSICAL THERAPY CO-SIGN The Physical Therapy Progress Notes documented by Mobility Specialist have been reviewed. Reviewed/Co-Signed by: Blanca Montalvo Documentation Done by: NIKKY GUO PTA Addendum: 07/03/21 at 0917 by Blanca Montalvo PT Amended: Links added.
--- NOTE | 2021-07-03 10:00 | NUR ---
PT VISUALLY ASSESSED. PT AMBULATING FROM BED A TO BED B STEADILY. STILL EASILY COMPLIANT AND OVERALL STABLE. WILL CONTINUE TO MONITOR.
--- NOTE | 2021-07-03 12:50 | NUR ---
PT VISUALLY ASSESSED. PT STABLE, BUT COMPLAINED OF PAIN IN RIGHT WRIST (DEMONSTRATED BY FROWNING WHILE POINTING AT HIS RIGHT WRIST). ASTUDILLO NICOLE FACES SCALE PAIN LEVEL OF 7-8 BASED UPON PT'S FROWNING AND GRIMACING FACE, BUT WAS UNABLE TO ARTICULATE HIS PAIN ASIDE FROM SAYING "HURT". WILL REASSESS AT 1350. Addendum: 07/03/21 at 1254 by Alondra Downing RN PT MEDICATED WITH LINDY HITCHCOCK.
--- NOTE | 2021-07-03 15:00 | NUR ---
PT VISUALLY ASSESSED. PT WAS STANDING AT THE DOORWAY OF HIS ROOM DEMANDING HIS PAIN MEDICATION. WHEN TOLD IT WAS NOT DUE YET, PT REFUSED TO GO BACK IN ROOM. PT IS STABLE. NO DISTRESS NOTED. CHAIR WAS PROVIDED AND MASK AT DOORWAY.
--- NOTE | 2021-07-03 17:05 | NUR ---
PT IS UP AT SINK ASSISTED BY RN. PT SUDDENLY FALLS BACKWARDS AND FALL WAS ASSISTED BY ME. PT FELL ON BUTTOCKS, BUT DID NOT HIT HIS HEAD. PT WAS ASSISTED BACK TO BED. NO DISTRESS NOTED. PT DENIES PAIN. BREATHING IS UNLABORED ON RA. VS ARE STABLE. WILL CONTINUE TO MONITOR.
--- NOTE | 2021-07-03 17:06 | NUR ---
NOTIFIED DR. MATTA ABOUT FALL AND INFORMED HIM PATIENT DID NOT HIT HIS HEAD. HE GAVE ORDER FOR BILATERAL HIPS AND SHOULDER XRAYS. PLACED STAT ORDER AND CALLED COMMUNITY SERVICE OFFICER COORDINATOR. THEY WILL ARRIVE SHORTLY.
[2021-07-03] MEDS: LORazepam 2 MG/ML VIAL IM/IVP PRN (17:17)
--- NOTE | 2021-07-03 17:17 | NUR ---
PT WAS VERY AGITATED AFTER FALL. PT ATTEMPTING TO HIT STAFF AND NONCOMPLIANT. PT WAS GIVEN ATIVAN FOR AGITATION. BP WAS 147/99 PRIOR TO ADMINISTRATION OF MEDICATION.
--- NOTE | 2021-07-03 18:49 | NUR ---
RISK IDENTIFICATION REPORT COMPLETED. UNIQUE EVENT ID [id number]
--- NOTE | 2021-07-03 19:00 | NUR ---
RECEIVED PT REPORT FROM AM NURSE FAIZAN RN FOR CONTINUITY OF CARE. PT IS STABLE IN BED, A&OX1. DENIES PAIN. ON RM AIR WITH NAD.RR EVEN AND UNLABORED WITH WQUAL CHEST RISE. GI INJTACT. SKIN IS INTACT. PT IS AMBULATORY WITH ASSIST AND CONTINENT. ALOL SAFETY MEASURES IN PLACE. BED IN LOW AND LOCKED POSITION. CALL LIGHT WITHIN REACH. WILL CONTINUE TO MONITOR.
--- NOTE | 2021-07-03 19:01 | NUR ---
ENDORSED PT TO NIGHTSHIFT NURSE FOR CONTINUITY OF CARE. PLAN OF CARE WAS DISCUSSED, PT STABLE.
[2021-07-03 20:00] VITALS: BP 131/93
--- NOTE | 2021-07-03 22:00 | NUR ---
RECEIVED HS MEDS AT 2100 WITH SIPS OF WATER, DENIES PAIN. ALL NEEDS ATTENDED. CALL LIGHT WITHIN REACH. WILL CONTINUE TO MONITOR.
[2021-07-04] VITALS: BP 131/93
--- NOTE | 2021-07-04 02:00 | NUR ---
FREQ ROUNDS. CHECKED PT STABLE AND ASLEEP IN BED. RR EVEN AND UNLABORED WITH EQUAL CHEST RISE. ALL SAFETY MEASURES IN PLACE. PT QUIET, COOPERATIVE. NAD. BED IN LOW AND LOCKED POSITION. CALL LIGHT WITHIN REACH .CONTINUE TO MONITOR.
[2021-07-04 04:00] VITALS: BP 131/93
--- NOTE | 2021-07-04 05:32 | NUR ---
FREQ ROUNDS. PT ASLEEP IN BED RR EVEN AND UNLABORED. CALL LIGHT WITHIN REACH. WILL CONTINUE TO MONITOR.
--- NOTE | 2021-07-04 07:43 | NUR ---
PT RESTING IN BED. ENDORSED REPORT TO AM NURSE FOR CONTINUITY OF CARE. PT IS STABLE.
--- NOTE | 2021-07-04 07:46 | NUR ---
RECEIVED REPORT FROM BUHR DRESSER NURSE FOR CONTINUITY OF CARE. ALL SAFETY MEASURE IN PLACE.
[2021-07-04 08:00] VITALS: BP 128/91
--- NOTE | 2021-07-04 08:00 | NUR ---
Patient's Plan of Care was discussed and reviewed with RACING CAR DRIVER: YOMAIRA HE
[2021-07-04] MEDS: HYDROcodone/APAP 5/325 MG 1 TAB TAB PO PRN ×2 (08:01→14:45)
--- NOTE | 2021-07-04 08:03 | NUR ---
PATIENT COMPLAIN OF RIGHT ARM AND HAND PAIN MEDICATED S ORDER.
[2021-07-04] MEDS: PANTOPRAZOLE 40 MG TABEC PO SCH (08:54)
[2021-07-04] MEDS: FOLIC ACID 1 MG TAB PO SCH (08:54)
[2021-07-04] MEDS: NICOTINE TRANSD SYS 14 MG/24 HR PATCH TD SCH ×2 (08:54→08:55)
[2021-07-04] MEDS: THIAMINE 100 MG TAB PO SCH (08:54)
[2021-07-04] MEDS: MULTIVITAMIN 1 TAB PO SCH (08:54)
[2021-07-04] MEDS: levETIRAcetam 500 MG TAB PO SCH ×2 (08:55→20:24)
--- NOTE | 2021-07-04 08:58 | NUR ---
GIVEN ALL DUE MEDICATION TOLERATED WELL.
--- NOTE | 2021-07-04 11:13 | NUR ---
07/04/21 RD FOLLOW UP COMPLETED PLEASE REFER TO NUTRITION ASSESSMENT UNDER CARE ACTIVITY FOR ESTIMATED NUTRITIONAL NEEDS. 1. CONTINUE REGULAR DIET TOLERATED 2. RD TO FOLLOW-UP 7 DAYS, LOW RISK PAO BELL RD
--- NOTE | 2021-07-04 12:00 | NUR ---
PATIENT AWAKE WATCHING TV NO DISTRESS NOTED. CALL LIGHT WITH IN EASY REACH.
--- NOTE | 2021-07-04 14:49 | NUR ---
COMPLAIN OF PAIN ON RIGHT HAND MEDICATED ORDERED. ASSISTED TO TOILET.
--- NOTE | 2021-07-04 15:49 | NUR ---
PATIENT AMBULATING WITH PT TOLERATING WELL.
[2021-07-04 16:00] VITALS: BP 122/88
--- NOTE | 2021-07-04 16:24 | NUR ---
PHYSICAL THERAPY CO-SIGN The Physical Therapy Progress Notes documented by Insurance Policy Clerk have been reviewed. Reviewed/Co-Signed by: Blanca Montalvo Documentation Done by: NIKKY GUO PTA Addendum: 07/04/21 at 1624 by Blanca Montalvo PT Amended: Links added.
--- NOTE | 2021-07-04 17:42 | NUR ---
PATIENT AWAKE SITTING ON EDGE OF HIS BED WATCHING TV ON STABLE CONDITION. NO SIGN AND SYMPTOMS OF PAIN OR DISCOMFORT. ENCOURAGED TO INCREASE FLUID INTAKE TOLERATED. ENCOURAGE TO CALL FOR ASSISTANCE WHEN WALKING TO TOILET.
--- NOTE | 2021-07-04 18:41 | NUR ---
PATIENT SITTING ON HIS BED EATING DINNER. ALL SAFETY MEASURE IN PLACE.
--- NOTE | 2021-07-04 19:25 | NUR ---
RECEIVED PATIENT AWAKE IN BED WELL RESTED WATCHING TV IN LOW BED POSITION, BRAKES ON, BILATERAL SIDE RAILS UP. NO S/S OF RESPIRATORY DISTRESS. SKIN WARM AND DRY TO THE TOUCH. CALL LIGHT WITHIN REACH.
--- NOTE | 2021-07-04 20:25 | NUR ---
ADMINISTERED SCHEDULED MEDICATION. TOLERATED WELL.
[2021-07-05] VITALS: BP 135/90
--- NOTE | 2021-07-05 02:28 | NUR ---
MADE ROUNDS, PT ASLEEP. NO SOB NOTED AT THIS TIME. CALL LIGHT WITHIN REACH. PT STABLE.
[2021-07-05] MEDS: HYDROcodone/APAP 5/325 MG 1 TAB TAB PO PRN ×3 (04:39→15:01)
--- NOTE | 2021-07-05 04:40 | NUR ---
COMPLAINED OF MODERATE PAIN ON THE RIGHT ARM, MEDICATED.
--- NOTE | 2021-07-05 07:16 | NUR ---
PATIENT STABLE. ENDORSED TO AM NURSE FOR CONTINUITY OF CARE.
--- NOTE | 2021-07-05 07:16 | NUR ---
RECEIVED REPORT FROM SECURITY TECHNICIAN NURSE FOR CONTINUITY OF CARE. PATIENT ASLEEP NO DISTRESS NOTED. CALL LIGHT WITH IN EASY REACH.
[2021-07-05 08:00] VITALS: BP 121/88
--- NOTE | 2021-07-05 08:00 | NUR ---
Patient's Plan of Care was discussed and reviewed with BUILDING [employer] SALESPERSON RETAIL: YOAMIRA, WILL CONTINUE WITH CURRENT POC.
--- NOTE | 2021-07-05 08:01 | NUR ---
PT. AT BED SIDE PATIENT PARTICIPATING WELL WITH THERAPY.
[2021-07-05] MEDS: MULTIVITAMIN 1 TAB PO SCH (08:25)
[2021-07-05] MEDS: PANTOPRAZOLE 40 MG TABEC PO SCH (08:25)
[2021-07-05] MEDS: levETIRAcetam 500 MG TAB PO SCH ×2 (08:26→21:13)
[2021-07-05] MEDS: FOLIC ACID 1 MG TAB PO SCH (08:26)
[2021-07-05] MEDS: NICOTINE TRANSD SYS 14 MG/24 HR PATCH TD SCH (08:26)
[2021-07-05] MEDS: THIAMINE 100 MG TAB PO SCH (08:26)
--- NOTE | 2021-07-05 08:31 | NUR ---
TOOK ALL DUE MEDICATION. PATIENT COMPLAIN OF PAIN ON HIS RIGHT HAND.
--- NOTE | 2021-07-05 08:39 | NUR ---
GIVEN NORCO FOR PAIN. PATIENT EATING BREAKFAST AT THIS TIME. CALL LIGHT WITH IN EASY REACH.
--- NOTE | 2021-07-05 09:25 | NUR ---
PHYSICAL THERAPY CO-SIGN The Physical Therapy Progress Notes documented by Medical Staffing Coordinator have been reviewed. Reviewed/Co-Signed by: Blanca Montalvo Documentation Done by:NIKKY GUO PTA Addendum: 07/05/21 at 7402 by Blanca Montalvo PT Amended: Links added.
--- NOTE | 2021-07-05 10:30 | NUR ---
PATIENT ON BED WATCHING TV NO DISCOMFORT NOTED. ALL SAFETY MEASURE IN PLACE.
[2021-07-05 12:16] LABS: BASOPHILS % (AUTO) 0.4 % (0.0-2.0); EOSINOPHILS # (AUTO) 0.1 K/uL (0-0.4); EOSINOPHILS % (AUTO) 1.1 % (0.0-4.0); HEMATOCRIT 41.3 % (36-52); LYMPHOCYTES # (AUTO) 1.1 K/uL (2.0-11.5); LYMPHOCYTES % (AUTO) 20.7 % (20.5-51.1); MEAN CORPUSCULAR HEMOGLOBIN 30 pg (27-31); MEAN CORPUSCULAR HGB CONC 34 g/dL (33-37); MEAN CORPUSCULAR VOLUME 89.1 fL (80-94); MONOCYTES # (AUTO) 0.4 K/uL (0.8-1.0); MONOCYTES % (AUTO) 8.5 % (1.7-9.3); NEUTROPHILS # (AUTO) 3.5 K/uL (1.8-7.7); NEUTROPHILS % (AUTO) 69.3 % (42.2-75.2); PLATELET COUNT (AUTO) 167 K/uL (140-450); RED BLOOD CELL COUNT(AUTO) 4.64 MIL/uL (4.20-6.10); RED CELL DISTRIBUTION WIDTH 13.9 % (11.6-13.7); WHITE BLOOD COUNT (AUTO) 5.1 K/uL (4.8-10.8)
--- NOTE | 2021-07-05 12:30 | NUR ---
PATIENT ALERT EATING LUNCH NO DISTRESS NOTED. ALL SAFETY MEASURE IN PLACE.
[2021-07-05 12:37] LABS: ANION GAP 8.8 (8-16); CREATININE 0.9 mg/dL (0.6-1.3); POTASSIUM 3.8 mmol/L (3.5-5.1)
--- NOTE | 2021-07-05 15:00 | NUR ---
COMPLAIN OF PAIN ON HIS RIGHT HAND MEDICATED ORDER. CALL LIGHT WITH IN EASY REACH. ENCOURAGED TO INCREASE FLUID INTAKE TOLERATED.
[2021-07-05 16:00] VITALS: BP 119/80
--- NOTE | 2021-07-05 17:00 | NUR ---
PATIENT ON BED WATCHING TV DENIES ANY DISCOMFORT. CALL LIGHT WITH IN EASY REACH. ENCOURAGE TO INCREASE FLUID TOLERATED.
--- NOTE | 2021-07-05 19:19 | NUR ---
PATIENT ALERT ABLE TO MAKE NEEDS KNOWN DONE EATING DINNER TOLERATED 100 %. ENCOURAGED TO INCREASE FLUID TOLERATED. NO SIGN AND SYMPTOMS OF INFECTION OR ABNORMAL BEHAVIOR. GAVE ENDORSEMENT TO TRAVEL TICKETING REVIEWER NURSE FOR CONTINUITY OF CARE. CALL LIGHT WITH IN EASY REACH.
--- NOTE | 2021-07-05 19:20 | NUR ---
RECEIVED BEDSIDE REPORT FROM DAY SHIFT NURSE FOR CONTINUITY OF PATIENT CARE. PT IS ON STABLE CONDITION.
--- NOTE | 2021-07-05 22:00 | NUR ---
PT IS STABLE, NO COMPLAINT OF PAIN.
[2021-07-06] VITALS: BP 119/80
[2021-07-06] MEDS: HYDROcodone/APAP 5/325 MG 1 TAB TAB PO PRN ×3 (06:33→20:55)
--- NOTE | 2021-07-06 06:33 | NUR ---
PATIENT COMPLAINTS OF PAIN OF RIGHT HAND 6/10, PAIN MED ADMINISTERED ORDERED.
--- NOTE | 2021-07-06 07:05 | NUR ---
RECEIVED REPORT FROM MORNING NURSE FOR CONTINUITY OF CARE. PT IS AWAKE SITTING IN BED. RESPIRATIONS EVEN AND UNLABORED ON ROOM AIR. NO DISTRESS NOTED. NO COMPLAINT OF PAIN. SKIN IS INTACT, WARM AND DRY TO TOUCH. NO IV SITE, PT REFUSED TO HAVE ONE. SAFETY PRECAUTIONS IN PLACE. PT IS ON YELLOW GOWN AND SOCKS, SIGNS PLACED ON THE DOOR. BED AT ITS LOWEST POSITION. BED IS LOCKED WITH ALARM ON. CALL LIGHT WITHIN REACH. WILL CONTINUE TO MONITOR.
--- NOTE | 2021-07-06 07:15 | NUR ---
PATIENT IS ON STABLE CONDITION. ENDORSED TO DAY SHIFT NURSE FOR CONTINUITY OF PATIENT CARE.
[2021-07-06 08:00] VITALS: BP 115/82
--- NOTE | 2021-07-06 08:00 | NUR ---
Patient's Plan of Care was discussed and reviewed with BUSINESS CONSULT: MARIELA JON
--- NOTE | 2021-07-06 08:35 | NUR ---
PT AT BEDSIDE.
[2021-07-06] MEDS: THIAMINE 100 MG TAB PO SCH ×2 (09:00→10:02)
[2021-07-06] MEDS: levETIRAcetam 500 MG TAB PO SCH ×2 (09:56→20:54)
[2021-07-06] MEDS: PANTOPRAZOLE 40 MG TABEC PO SCH (09:57)
[2021-07-06] MEDS: MULTIVITAMIN 1 TAB PO SCH (09:57)
[2021-07-06] MEDS: NICOTINE TRANSD SYS 14 MG/24 HR PATCH TD SCH (10:02)
[2021-07-06] MEDS: FOLIC ACID 1 MG TAB PO SCH (10:03)
--- NOTE | 2021-07-06 10:09 | NUR ---
ADMINISTERED SCHEDULED MORNING MEDS. PT REFUSED TAKING VIT B1. EXPLAIN THE MEDS AND ITS IMPORTANCE. PT VERBALIZED UNDERSTANDING.
--- NOTE | 2021-07-06 14:00 | NUR ---
PT COMPLAINT OF PAIN 07/21. PT MEDICATED ORDERED.
--- NOTE | 2021-07-06 15:22 | NUR ---
PHYSICAL THERAPY CO-SIGN The Physical Therapy Progress Notes documented by Ecologist have been reviewed. Reviewed/Co-Signed by: Blanca Montalvo Documentation Done by: NIKKY GUO PTA Addendum: 07/06/21 at 1523 by Blanca Montalvo PT Amended: Links added.
[2021-07-06 16:00] VITALS: BP 126/76
--- NOTE | 2021-07-06 17:45 | NUR ---
DID PT ROUNDS. PT SITTING IN BED, RESTING. BREATHING EVEN AND UNLABORED. NO DISTRESS NOTED. CALL LIGHT WITHIN REACH. SAFETY MEASURES IN PLACE. WILL CONTINUE TO MONITOR.
--- NOTE | 2021-07-06 19:20 | NUR ---
ENDORSED PT TO YARN TEXTURE MACHINE OPERATOR NURSE FOR CONTINUITY OF CARE. ALL NEEDS MET THROUGHOUT SHIFT. PT IS STABLE.
--- NOTE | 2021-07-06 19:21 | NUR ---
RECEIVED BEDSIDE REPORT FROM DAY SHIFT NURSE FOR CONTINUITY OF PATIENT CARE. PATIENT IS STABLE.
--- NOTE | 2021-07-06 20:55 | NUR ---
PATIENT COMPLAINTS OF HAVING PAIN OF 6/10 ON RIGHT ARM. PAIN MEDICATION ADMINISTERED ORDERED.
--- NOTE | 2021-07-06 21:55 | NUR ---
PATIENT IS ASLEEP. NO FACIAL GRIMACING.
--- NOTE | 2021-07-07 02:00 | NUR ---
PATIENT IS ON STABLE CONDITION AND SLEEPING SOUNDLY. NO FACIAL GRIMACING.
[2021-07-07] MEDS: HYDROcodone/APAP 5/325 MG 1 TAB TAB PO PRN ×3 (06:18→20:26)
--- NOTE | 2021-07-07 06:18 | NUR ---
PATIENT COMPLAINTS OF PAIN 6/10 OF RIGHT ARM. PAIN MEDICATION ADMINISTERED ORDERED.
--- NOTE | 2021-07-07 07:20 | NUR ---
RECEIVED BEDSIDE REPORT FROM CRUISE GUIDE NURSE FOR CONTINUITY OF CARE. PT IS AWAKE AND ALERT. A&OX1. ON RA WITH BREATHING UNLABORED. AMBULATORY INDEPENDENTLY. FALL RISK. SKIN IS WARM, DRY, AND INTACT. NO IV IN PLACE. PT IS STABLE. PLAN OF CARE DISCUSSED.
[2021-07-07] MEDS: levETIRAcetam 500 MG TAB PO SCH ×2 (08:51→20:26)
[2021-07-07] MEDS: PANTOPRAZOLE 40 MG TABEC PO SCH (08:52)
[2021-07-07] MEDS: MULTIVITAMIN 1 TAB PO SCH (08:52)
[2021-07-07] MEDS: NICOTINE TRANSD SYS 14 MG/24 HR PATCH TD SCH (08:52)
[2021-07-07] MEDS: THIAMINE 100 MG TAB PO SCH (08:52)
[2021-07-07] MEDS: FOLIC ACID 1 MG TAB PO SCH (08:52)
--- NOTE | 2021-07-07 09:00 | NUR ---
PT IS AWAKE AND ALERT. WORKING WITH PT, WALKING DOWN THE HALLS WITH ASSIST. GAIT APPEARS STEADY. NO DISTRESS NOTED. PT DENIES ANY PAIN. WILL MONITOR.
[2021-07-07 10:07] VITALS: BP 120/81
--- NOTE | 2021-07-07 13:10 | NUR ---
PT WAS GIVEN NORCO FOR GENERALIZED PAIN. BP WAS STABLE PRIOR TO ADMINISTRATION OF MEDICATION
--- NOTE | 2021-07-07 14:03 | NUR ---
PHYSICAL THERAPY CO-SIGN The Physical Therapy Progress Notes documented by Forgesmith have been reviewed. Reviewed/Co-Signed by: Blanca Montalvo Documentation Done by: NIKKY GUO PTA Addendum: 07/07/21 at 1404 by Blanca Montalvo PT Amended: Links added.
--- NOTE | 2021-07-07 15:59 | NUR ---
PT IS AWAKE AND SITTING UPRIGHT IN BED. UNABLE TO MAKE NEEDS KNOWN DUE TO GARBLED SPEECH. PT IS STABLE. NO DISTRESS NOTED. WILL CONTINUE TO MONITOR.
[2021-07-07 16:00] VITALS: BP 120/87
--- NOTE | 2021-07-07 19:32 | NUR ---
ENDORSED PT TO VESSEL SLAG WORKER NURSE FOR CONTINUITY OF CARE. PT IS STABLE. PLAN OF CARE DISCUSSED.
[2021-07-07 20:00] VITALS: BP 141/97
[2021-07-08 04:00] VITALS: BP 129/86
--- NOTE | 2021-07-08 07:06 | NUR ---
pt awake , alert and verbally responsive with expressive aphasia, able to communicate needs. c/o of rt side pain 07/21, at 0530, requesting [place], [place] order . Pt refused Tylenol as ordered. Paged Dr. Somers, await response. will endorse care to incoming RN. V/s stable, no s/s of acute distress.
[2021-07-08 08:00] VITALS: BP 138/105
--- NOTE | 2021-07-08 08:00 | NUR ---
RECEIVED REPORT FROM PLASTIC MACHINE OPERATOR FOR CONTINUITY OF CARE. PATIENT ALERT AWAKE ORIENTED X3, NOT IN ANY DISTRESS NOTED. C/O OF PAIN ON HIS LEFT HAND, PUT ORDER PER DR. FAJARDO FOR PAIN MEDS. NO IV ACCESS AT THIS TIME. FALL RISK OBSERVED. NEEDS ATTENDED. WILL CONTINUE TO MONITOR.
[2021-07-08] MEDS: FOLIC ACID 1 MG TAB PO SCH (09:01)
[2021-07-08] MEDS: levETIRAcetam 500 MG TAB PO SCH ×2 (09:02→21:16)
[2021-07-08] MEDS: PANTOPRAZOLE 40 MG TABEC PO SCH (09:02)
[2021-07-08] MEDS: MULTIVITAMIN 1 TAB PO SCH (09:02)
[2021-07-08] MEDS: THIAMINE 100 MG TAB PO SCH (09:02)
[2021-07-08] MEDS: HYDROcodone/APAP 5/325 MG 1 TAB TAB PO PRN ×3 (09:03→21:18)
[2021-07-08] MEDS: NICOTINE TRANSD SYS 14 MG/24 HR PATCH TD SCH (09:03)
--- NOTE | 2021-07-08 09:30 | NUR ---
DUE MEDICATIONS GIVEN AND TOLERATED WELL. PAIN MEDICATION GIVEN ORDERED. WILL CONTINUE TO MONITOR.
--- NOTE | 2021-07-08 13:36 | NUR ---
RESTING IN BED, DENIES PAIN. ATE LUNCH WITH GOOD APPETITE.
[2021-07-08 16:00] VITALS: BP 136/99
--- NOTE | 2021-07-08 19:26 | NUR ---
PATIENT RESTING IN BED. ENDORSE TO THE NEXT SHIFT FOR CONTINUITY OF CARE. IN STABLE CONDITION.
--- NOTE | 2021-07-08 19:27 | NUR ---
RECEIVED ENDORSEMENT FROM NAYELY PORTER FOR CONTINUITY OF CARE. PATIENT IS AWAKE AND STABLE. A&OX3. VERBALLY RESPONSIVE AND ABLE TO COMMUNICATE NEEDS. ON ROOM AIR WITH NO APPARENT S/SX OF ACUTE DISTRESS. RESPIRATIONS EVEN AND UNLABORED WITH NO APPARENT S/SX OF ACUTE DISTRESS. IV SITE NOT PRESENT. PATIENT IS PENDING DISCHARGE. PATIENT IS AMBULATORY. PLAN OF CARE AND WHITE COMMUNICATION BOARD UPDATED. ALL SAFETY MEASURES IN PLACE. CALL LIGHT WITHIN REACH. WILL CONTINUE TO MONITOR.
[2021-07-08 20:00] VITALS: BP 132/96
--- NOTE | 2021-07-08 21:05 | NUR ---
ADMINISTERED SCHEDULED PO MEDS PER MD ORDER. TOLERATED WELL. DENIES PAIN. ON ROOM AIR WITH NO APPARENT S/SX OF ACUTE DISTRESS. WHITE COMMUNICATION BOARD UPDATED. ALL SAFETY MEASURES IN PLACE. BED IN LOW/LOCKED POSITION. WILL CONTINUE TO MONITOR.
--- NOTE | 2021-07-08 22:00 | NUR ---
Patient's Plan of Care was discussed and reviewed with HEATER OPERATOR: CAYDEN ROBERTS
--- NOTE | 2021-07-09 03:17 | NUR ---
ROUNDED ON PATIENT. PATIENT IS STABLE AND ASLEEP. CHEST IS RISING AND FALLING EVENLY. RESPIRATIONS EVEN AND UNLABORED WITH NO APPARENT S/SX OF ACUTE DISTRESS. WHITE COMMUNICATION BOARD UPDATED. ALL SAFETY MEASURES IN PLACE. BED IN LOW/LOCKED POSITION. CALL LIGHT WITHIN REACH. WILL CONTINUE TO MONITOR.
[2021-07-09 04:00] VITALS: BP 126/81
[2021-07-09] MEDS: HYDROcodone/APAP 5/325 MG 1 TAB TAB PO PRN ×4 (05:24→21:36)
--- NOTE | 2021-07-09 05:25 | NUR ---
PATIENT C/O 6/10 RIGHT HAND PAIN. MEDICATED PER PRN ORDER. TOLERATED WELL. RESPIRATIONS EVEN AND UNLABORED WITH NO APPARENT S/SX OF ACUTE DISTRESS. ALL NEEDS MET. ALL SAFETY MEASURES IN PLACE. BED IN LOW/LOCKED POSITION. WILL CONTINUE TO MONITOR.
--- NOTE | 2021-07-09 07:20 | NUR ---
ENDORSED PATIENT TO NAYELY JORGENSEN FOR CONTINUITY OF CARE. PATIENT IS STABLE.
--- NOTE | 2021-07-09 08:00 | NUR ---
RECEIVED REPORT FROM DIE FILER FOR CONTINUITY OF CARE. PATIENT ALERT AWAKE ORIENTED X3, NOT IN ANY DISTRESS NOTED. NO IV AT THIS TIME. NEEDS ATTENDED. WILL CONTINUE TO MONITOR.
[2021-07-09] MEDS: PANTOPRAZOLE 40 MG TABEC PO SCH (08:28)
[2021-07-09] MEDS: MULTIVITAMIN 1 TAB PO SCH (08:29)
[2021-07-09] MEDS: THIAMINE 100 MG TAB PO SCH (08:29)
[2021-07-09] MEDS: levETIRAcetam 500 MG TAB PO SCH ×2 (08:29→21:36)
[2021-07-09] MEDS: NICOTINE TRANSD SYS 14 MG/24 HR PATCH TD SCH (08:30)
[2021-07-09] MEDS: FOLIC ACID 1 MG TAB PO SCH (08:30)
--- NOTE | 2021-07-09 09:00 | NUR ---
DUE MEDICATIONS GIVEN AND TOLERATED WELL. ASKING FOR PAIN MEDS EXPLAINED TO HIM THAT IT'S NOT DUE YET. WENT BACK TO HIS BED. WILL CONTINUE TO MONITOR.
--- NOTE | 2021-07-09 10:37 | NUR ---
PAIN MEDICATION GIVEN ORDERED. WILL CONTINUE TO MONITOR.
[2021-07-09 16:00] VITALS: BP 136/99
--- NOTE | 2021-07-09 19:11 | NUR ---
PATIENT AMBULATING IN THE ROOM, NOT IN ANY DISTRESS NOTED. WILL ENDORSE TO THE NEXT SHIFT FOR CONTINUITY OF CARE.
[2021-07-10] MEDS: HYDROcodone/APAP 5/325 MG 1 TAB TAB PO PRN ×3 (05:46→17:31)
--- NOTE | 2021-07-10 07:30 | NUR ---
RECEIVED REPORT FROM CONSULTING ACTUARY NURSE FOR CONTINUITY OF CARE. PATIENT AWAKE RESPIRATION EVEN AND NOT LABORED NO SHORTNESS OF BREATH. ALL SAFETY MEASURE IN PLACE.
[2021-07-10 08:00] VITALS: BP 132/95
[2021-07-10] MEDS: NICOTINE TRANSD SYS 14 MG/24 HR PATCH TD SCH (08:54)
[2021-07-10] MEDS: FOLIC ACID 1 MG TAB PO SCH (08:57)
[2021-07-10] MEDS: levETIRAcetam 500 MG TAB PO SCH ×2 (08:57→21:29)
[2021-07-10] MEDS: THIAMINE 100 MG TAB PO SCH (08:58)
[2021-07-10] MEDS: PANTOPRAZOLE 40 MG TABEC PO SCH (08:58)
[2021-07-10] MEDS: MULTIVITAMIN 1 TAB PO SCH (08:58)
--- NOTE | 2021-07-10 09:03 | NUR ---
GIVEN ALL DUE MEDICATION.
--- NOTE | 2021-07-10 11:03 | NUR ---
(07/10/21) RD FOLLOW UP COMPLETED PLEASE REFER TO NUTRITION PROGRESS NOTE UNDER CARE ACTIVITY FOR ESTIMATED NUTRITION NEEDS. RD RECOMMENDATIONS: 1. CONTINUE REGULAR DIET TOLERATED 2. RD TO FOLLOW-UP 7 DAYS, LOW RISK EMY FERNANDEZ MS, RDN
--- NOTE | 2021-07-10 13:02 | NUR ---
PATIENT ON BED RESTING. ATE LUNCH AFTER HE HAD HIS PHYSICAL THERAFPY FOR FAMBULATION TOLERATED WELL. NO ABNORMAL BEHAVIOR
--- NOTE | 2021-07-10 13:25 | NUR ---
PHYSICAL THERAPY CO-SIGN The Physical Therapy Progress Notes documented by Lead Instructor/Flight Attendant have been reviewed. Reviewed/Co-Signed by: Blanca Montalvo Documentation Done by: NIKKY GUO PTA Addendum: 07/10/21 at 1326 by Blanca Montalvo PT Amended: Links added.
[2021-07-10] MEDS: ACETAMINOPHEN 325 MG TAB PO PRN (15:30)
--- NOTE | 2021-07-10 15:33 | NUR ---
PATIENT COMPLAIN OF RIGHT HAND PAIN MEDICATED ORDER.
[2021-07-10 16:00] VITALS: BP 124/91
--- NOTE | 2021-07-10 17:35 | NUR ---
PATIENT ALERT ABLE TO MAKE NEEDS KNOWN COMPLAIN OF PAIN ON RIGHT HAND MEDICATED ORDER.
--- NOTE | 2021-07-10 18:47 | NUR ---
PATIENT AWAKE WATCHING TV NO DISTRESS NOTE. CALL LIGHT WITH IN EASY REACH.
--- NOTE | 2021-07-10 19:16 | NUR ---
GAVE REPORT TO ARTS AND SCIENCES DEAN NURSE FOR CONTINUITY OF CARE. PATIENT AWAKE NO DISTRESS NOTED. WATCHING TV CALL LIGHT WITH IN EASY REACH.
--- NOTE | 2021-07-10 19:17 | NUR ---
RECEIVED PATIENT IN BED AWAKE. PATIENT IS ON ROOM AIR WITHOUT RESPIRATORY DISTRESS. PATIENT HAS NO COMPLAINTS FOR PAIN/DISCOMFORT AT THIS TIME. PATIENT WAS ABLE TO EAT 100% OF HIS MEAL. PATIENT WAS MADE AWARE OF POSSIBLE DISCHARGE WHEN A FACILITY ACCEPTS. PATIENT IS AMBULATORY TO RESTROOM BUT URINAL WAS ENCOURAGED. URINAL IS AVAILABLE AT BEDSIDE. SIDE RAILS UP X 3 FOR SEIZURE PRECAUTION, FOR ADJUSTMENT, AND SAFETY. CALL LIGHT WITHIN REACH FOR ALL ASSISTANCE. MNURPH1
--- NOTE | 2021-07-10 19:30 | NUR ---
PATIENT PLAN OF CARE DISCUSSED AND REVIEWED WITH LINH BOOTHE.
--- NOTE | 2021-07-10 23:49 | NUR ---
PATIENT IN BED AWAKE WATCHING TV. HOB ELEVATED TO 45 DEGREES. PATIENT DENIES ANY PAIN/DISCOMFORT. BED AT THE LOWEST LEVEL FOR HX OF FALL. PATIENT HAS HAD NO SEIZURE ACTIVITY AT THIS TIME. SIDE RAILS X 3 AND PADDED FOR SEIZURE PRECAUTION. CALL LIGHT IN REACH FOR ASSISTANCE AND NEEDS. MNURPH1
[2021-07-11 00:05] VITALS: BP 124/91
--- NOTE | 2021-07-11 01:50 | NUR ---
PATIENT OBSERVED IN BED ASLEEP. NOTED CHEST RISING AND FALLING EVENLY. NO NOTED RESPIRATORY DISTRESS. PATIENT DENIES ANY PAIN/DISCOMFORT AT THIS TIME. NO NOTED SEIZURE ACTIVITY. SIDE RAILS UP X 2 FOR SAFETY. MNURPH1
--- NOTE | 2021-07-11 05:18 | NUR ---
PATIENT IN BED AWAKE. NO NOTED SEIZURE ACTIVITIES. PATIENT COMPLAINED OF PAIN TO HAND. NURSING WILL GIVE PRN. HOB ELEVATED TO IMPROVE BREATHING. PATIENT DENIES HAVING DIFFICULTY BREATHING. SIDE RAILS UP X 2. CALL LIGHT WITHIN REACH FOR ASSISTANCE AND NEEDS. NURSING WILL REASSESS AFTER ONE HOUR. MNURPH1
[2021-07-11] MEDS: HYDROcodone/APAP 5/325 MG 1 TAB TAB PO PRN ×3 (05:20→20:16)
--- NOTE | 2021-07-11 06:37 | NUR ---
PATIENT OBSERVED IN BED SITTING UP. NO NOTED RESPIRATORY DISTRESS. PATIENT DENIES ANY PAIN/DISCOMFORT AT THIS TIME. SIDE RAILS UP X 2 FOR SAFETY. SITTER AT BED SIDE FOR SAFETY. MNURPH1
--- NOTE | 2021-07-11 07:31 | NUR ---
ENDORSED PATIENT TO RONNY MELTON FOR CONTINUITY OF CARE. PATIENT WAS STABLE AT ENDORSEMENT. [email or web address]
--- NOTE | 2021-07-11 07:33 | NUR ---
RECEIVED REPORT FROM CITRIX ARCHITECT NURSE FOR CONTINUITY OF CARE. PT IN BED AT THIS TIME. RESPIRATIONS ARE EVEN AND UNLABORED ON ROOM AIR. NO SIGNS OF DISTRESS NOTED. NO COMPLAINTS OF PAIN OR DISCOMFORT. CALL LIGHT WITHIN REACH. ALL SAFETY MEASURES IN PLACE. WILL CONTINUE TO MONITOR.
[2021-07-11 08:00] VITALS: BP 118/86
[2021-07-11] MEDS: levETIRAcetam 500 MG TAB PO SCH ×2 (08:49→20:15)
[2021-07-11] MEDS: MULTIVITAMIN 1 TAB PO SCH (08:50)
[2021-07-11] MEDS: PANTOPRAZOLE 40 MG TABEC PO SCH (08:50)
[2021-07-11] MEDS: FOLIC ACID 1 MG TAB PO SCH (08:50)
[2021-07-11] MEDS: THIAMINE 100 MG TAB PO SCH (08:50)
[2021-07-11] MEDS: NICOTINE TRANSD SYS 14 MG/24 HR PATCH TD SCH (08:55)
--- NOTE | 2021-07-11 08:56 | NUR ---
ADMINISTERED ALL SCHEDULED MEDICATIONS. EDUCATED PT ON MEDS ADMINISTERED. APPLIED NICOTINE PATCH TO K[place]ER[place]. WILL CONTINUE TO MONITOR.
--- NOTE | 2021-07-11 11:13 | NUR ---
PHYSICAL THERAPY CO-SIGN The Physical Therapy Progress Notes documented by Vending Machine Servicer have been reviewed. Reviewed/Co-Signed by: Blanca Montalvo Documentation Done by: NIKKY GUO PTA Addendum: 07/11/21 at 1114 by Blanca Montalvo PT Amended: Links added.
--- NOTE | 2021-07-11 11:17 | NUR ---
PT WALKING OUT OF ROOM LOOKING FOR NURSE. STATES HE WANTS MORPHINE. INFORMED PT THAT HIS PAIN MEDICATION IS NOT DUE YET, HE HAD GOTTEN PAIN MEDICATION EARLIER THAT MORNING. PT WALKED BACK TO ROOM. WILL CONTINUE TO MONITOR.
--- NOTE | 2021-07-11 12:26 | NUR ---
PT COMING OUT OF ROOM, ASKING FOR MORPHINE AGAIN, STATES "I WANT MORPHINE". NORCO WAS GIVEN PER MD ORDERS. WILL CONTINUE TO MONITOR.
--- NOTE | 2021-07-11 13:26 | NUR ---
WENT TO RE-ASSESS PT, PT IN BED WATCHING TV. NO COMPLAINTS OF PAIN OR DISCOMFORT. WILL CONTINUE TO MONITOR.
--- NOTE | 2021-07-11 14:43 | NUR ---
PT COMING OUT OF ROOM, ASKING NURSES FOR MORPHINE. INFORMED PT THAT HE WAS NOT YET DUE FOR PAIN MEDICATION. PT SHOOK HIS HEAD STATED "I WANT MORPHINE". EDUCATED PT REGARDING HIS PAIN MEDICATION AND PARAMETERS FOR PAIN MEDICATION. PT CONTINUES TO ASK FOR MORPHINE. VS TAKEN, ALL WITHIN NORMAL RANGE. WILL CONTINUE TO MONITOR.
[2021-07-11 16:00] VITALS: BP 122/83
--- NOTE | 2021-07-11 17:52 | NUR ---
PT WALKING OUT OF ROOM, STATING HE WANTS MORPHINE. INFORMED PT THAT HIS PAIN MEDICATION IS NOT DUE YET. ASSIST PT BACK TO ROOM. WILL CONTINUE TO MONITOR.
--- NOTE | 2021-07-11 19:05 | NUR ---
ENDORSED PT TO LIGHT INDUSTRIAL SUPERVISOR NURSE FOR CONTINUITY OF CARE. PT IS STABLE.
--- NOTE | 2021-07-11 19:06 | NUR ---
RECEIVED REPORT FROM NURSE RONNY MELTON FOR CONTINUITY OF CARE.PT IS AWAKE ON ROOM AIR WITH NAD. PT IS AMBULATORY NO IV. SKIN IS INTACT PLAN OF CARE DISCUSSED. WILL CONTINUE TO MONITOR.
--- NOTE | 2021-07-11 20:16 | NUR ---
PT AWAKE , ALERT C/O 09/20 REQUESTING PAIN MED. RECEIVED NORCO 1 TAB PO. EFFECTIVE SLEEPING AFTER 15 MINUTES. RR EVEN AND UNLABORED WITH EQUAL CHEST RISE. ALL SAFETY MEASURES IN PLACE. BED LOW AND LOCKED. CALL LIGHT WITHIN REACH. WILL CONTINUE TO MONITOR.
[2021-07-12] VITALS: BP 114/69
[2021-07-12] MEDS: HYDROcodone/APAP 5/325 MG 1 TAB TAB PO PRN (05:27)
--- NOTE | 2021-07-12 07:05 | NUR ---
RECEIVED REPORT FROM PROJECT HIRE NURSE FOR CONTINUITY OF CARE. PT UP AND WALKING AROUND HIS ROOM. RESPIRATIONS ARE EVEN AND UNLABORED ON ROOM AIR. NO SIGNS OF DISTRESS NOTED. ABD IS NONTENDER, NONDISTENDED WITH BOWEL SOUNDS PRESENT. PT IS CONTINENT OF BOWEL AND BLADDER. ABLE TO AMBULATE TO REST ROOM. SKIN IS WARM, DRY, AND INTACT. NO IV ACCESS. CALL LIGHT WITHIN REACH. ALL SAFETY MEASURES IN PLACE. WILL CONTINUE TO MONITOR.
[2021-07-12 08:00] VITALS: BP 155/68
--- NOTE | 2021-07-12 08:00 | NUR ---
DISCUSSED PLAN OF CARE WITH CREDIT COLLECTIONS CLERK FOR CONTINUITY OF CARE. PT STABLE, CURRENTLY AMBULATING WITH PT.
--- NOTE | 2021-07-12 08:30 | NUR ---
PT WALKING AROUND UNIT. STATES HE WANTS MORPHINE. INFORMED PT THAT HE RECEIVED NORCO EARLIER TODAY AND IS NOT DUE FOR MORE PAIN MEDICATIONS. PT UPSET. ATTEMPTED TO WALK OUT OF HOSPITAL. ASSISTED PT BACK TO ROOM. WILL CONTINUE TO MONITOR.
[2021-07-12] MEDS ORDERED: ALPRAZolam 0.5 MG TAB PO PRN (09:00)
[2021-07-12] MEDS ORDERED: LORazepam 2 MG/ML VIAL IM/IVP PRN (09:00)
[2021-07-12] MEDS: THIAMINE 100 MG TAB PO SCH (09:35)
[2021-07-12] MEDS: FOLIC ACID 1 MG TAB PO SCH (09:35)
[2021-07-12] MEDS: levETIRAcetam 500 MG TAB PO SCH (09:35)
[2021-07-12] MEDS: MULTIVITAMIN 1 TAB PO SCH (09:35)
[2021-07-12] MEDS: PANTOPRAZOLE 40 MG TABEC PO SCH (09:35)
[2021-07-12] MEDS: NICOTINE TRANSD SYS 14 MG/24 HR PATCH TD SCH (09:36)
--- NOTE | 2021-07-12 10:48 | NUR ---
PHYSICAL THERAPY CO-SIGN The Physical Therapy Progress Notes documented by Marketing Education Teacher have been reviewed. Reviewed/Co-Signed by: Blanca Montalvo Documentation Done by: NIKKY GUO PTA Addendum: 07/12/21 at 1049 by Blanca Montalvo PT Amended: Links added.
--- NOTE | 2021-07-12 13:51 | NUR ---
PT ELOPED OFF OF UNIT. NO IV IN PLACE.
--- NOTE | 2021-07-12 13:52 | NUR ---
PT CONTINUED TO WALK AROUND UNIT, ASKING NURSE FOR MORPHINE. INFORMED PT THAT THERE IS NO ORDER FOR MORPHINE. PERFORMED PAIN ASSESSMENT. OFFERED PT PO NORCO. PT REFUSED STATED HE WANTS MORPHINE. PT GOT UPSET. RE-ORIENTED PT BACK TO ROOM. PT RETURNED A FEW MINUTES LATER TO NURSES STATION, AGAIN ASKING FOR MORPHINE. REMINDED PT THAT HE HAS NO MORPHINE. PT AGAIN GOT UPSET. ASKING FOR MONEY. RE-ORIENTED PT AGAIN BACK TO ROOM. PT STANDING AT DOOR WAY, THEN BEGAN WALKING UP AND DOWN UNIT. PT FOUND TO HAVE ELOPED. PT DID NOT HAVE AN IV LINE IN PLACE. INFORMED FISH HATCHERY INSPECTOR, INFORMED .
--- NOTE | 2021-07-12 14:32 | NUR ---
DR GOMEZ CAME IN TO SEE PT FOR CONSULTATION. DR GOMEZ ASKED ME WHERE WAS PT. INFORMED DR GOMEZ THAT PT HAD ELOPED EARLIER, ABOUT AN HOUR PRIOR. DR GOMEZ THEN ASKED ME FOR PT CHART. INFORMED DR GOMEZ THAT THE CHART HAD BEEN BROKEN DOWN ALREADY. DR GOMEZ STATED "THATS OK THEN". DR GOMEZ THEN CONTINUED TO UTILIZE COMPUTER AND LEFT.
== END 2021-07-12 13:45 | disposition left against medical advice (07) | DRG 917 ==
LOC: MED 01:03 → MTU 06:02
PROVIDERS: ADMIT Student in an Organized Health Care Education/Training Program; ATTEND Student in an Organized Health Care Education/Training Program
DX: T51.91XA Toxic effect of unspecified alcohol, accidental (unintentional), initial encounter (principal); G92.9 Unspecified toxic encephalopathy; F10.129 Alcohol abuse with intoxication, unspecified; E78.5 Hyperlipidemia, unspecified; G40.909 Epilepsy, unspecified, not intractable, without status epilepticus; I10 Essential (primary) hypertension; Z20.822 Contact with and (suspected) exposure to COVID-19; E87.6 Hypokalemia; Y90.8 Blood alcohol level of 240 mg/100 ml or more; D18.1 Lymphangioma, any site; G93.0 Cerebral cysts; Z59.00 Homelessness unspecified; Y92.89 Other specified places as the place of occurrence of the external cause; G93.89 Other specified disorders of brain
CPT/HCPCS: 36415; 70450; 71045; 73030; 80048; 80053; 80305; 81003; 82140; 82150; 83036; 83690; 83735; 83880; 84100; 84436; 84439; 84443; 84479; 84484; 85025; 85610; 85730; 87081; 87635-QW; 93005; 96361; 96365; 96368; 96372; 96375; 97110; 97112; 97116; 97163-GP; 97530; 99285; A9153; G0480; G0482; J1953; J2060; J2405; J3411; J3475; J3490; J7030; Q0092; Q9967

== ENCOUNTER 2021-07-13 05:40 | Inpatient (IN) | payer OTHER ==
[~2021-07-13] VITALS: Ht 177.8 cm; Wt 74.8 kg
[~2021-07-13 05:40] MED LIST: FOLI1TAB90 PO; KEP500 PO; LIB25 PO; NICO14TD30 TD; THE PO; THIA-34 PO
[2021-07-13] MEDS ORDERED: NACL 0.9% 1,000 ML IV ONE ×2 (05:55→08:35)
[2021-07-13] MEDS ORDERED: DEXTROSE 50% 50 ML SYR IVP ONE ×5 (05:55→12:00)
[2021-07-13] MEDS ORDERED: NALOXONE PFS 2 MG/2 ML SYR IVP ONE (05:55)
[2021-07-13 05:59] VITALS: BP 129/93
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
--- NOTE | 2021-07-13 06:50 | NUR ---
Analia hernandez in [facility] - 07/13/21 at 0651 by VIRY PT TAKEN TO CT
--- NOTE | 2021-07-13 06:50 | NUR ---
PT TAKEN TO CT
--- NOTE | 2021-07-13 07:01 | NUR ---
PT RETURNED FROM CT
--- NOTE | 2021-07-13 07:02 | NUR ---
PT RETURN FROM RADIOLOGY
[2021-07-13 07:31] LABS: BASOPHILS % (AUTO) 0.3 % (0.0-2.0); EOSINOPHILS % (AUTO) 0.2 % (0.0-4.0); HEMATOCRIT 43.7 % (36-52); HEMOGLOBIN 14.7 g/dL (12.0-18.0); LYMPHOCYTES # (AUTO) 1.3 K/uL (2.0-11.5); LYMPHOCYTES % (AUTO) 20.9 % (20.5-51.1); MEAN CORPUSCULAR HEMOGLOBIN 30 pg (27-31); MEAN CORPUSCULAR HGB CONC 34 g/dL (33-37); MEAN CORPUSCULAR VOLUME 88.8 fL (80-94); MONOCYTES # (AUTO) 0.7 K/uL (0.8-1.0); MONOCYTES % (AUTO) 10.5 % (1.7-9.3); NEUTROPHILS # (AUTO) 4.4 K/uL (1.8-7.7); NEUTROPHILS % (AUTO) 68.1 % (42.2-75.2); PLATELET COUNT (AUTO) 230 K/uL (140-450); RED BLOOD CELL COUNT(AUTO) 4.92 MIL/uL (4.20-6.10); RED CELL DISTRIBUTION WIDTH 14.2 % (11.6-13.7); WHITE BLOOD COUNT (AUTO) 6.5 K/uL (4.8-10.8)
--- NOTE | 2021-07-13 07:58 | NUR ---
PT MOVED TO BED 13.
--- NOTE | 2021-07-13 08:04 | NUR ---
ERMD AT BEDSIDE.
--- NOTE | 2021-07-13 08:07 | NUR ---
PATIENT ASSISTED TO THE RESTROOM, PATIENT UNABLE TO VOID.
[2021-07-13 08:32] LABS: ALBUMIN 4.7 g/dL (3.4-5.0); ANION GAP 15.6 (8-16); ASPARTATE AMINOTRANSFERASE 52 U/L (15-37); CHLORIDE 103 mmol/L (98-107); CREATININE 1.2 mg/dL (0.6-1.3); GFR ARICAN-AMERICAN 87 mL/min (>90); GLUCOSE 77 mg/dL (74-106); POTASSIUM 3.6 mmol/L (3.5-5.1); SODIUM SERUM 141 mmol/L (136-145); TOTAL BILIRUBIN 0.3 mg/dL (0.0-1.0); UREA NITROGEN, BLOOD 37 mg/dL (7-18)
[2021-07-13 08:37] LABS: SALICYLATE < 2.8 mg/dL (2.8-20.0)
--- NOTE | 2021-07-13 11:08 | NUR ---
ASSISTED PATIENT TO RESTROOM. PATIENT VOIDED AND URINE SPECIMEN OBTAINED.
--- NOTE | 2021-07-13 11:14 | NUR ---
HANDED URINE SPECIMEN TO MECHANICAL SERVICE REPRESENTATIVE.
[2021-07-13 11:19] LABS: APPEARANCE,URINE CLEAR (CLEAR); BILIRUBIN,URINE NEGATIVE (NEGATIVE); BLOOD, URINE NEGATIVE (NEGATIVE); COLOR,URINE YELLOW (YELLOW); LEUKOCYTE ESTERASE ,URINE NEGATIVE (NEGATIVE); NITRITE, URINE NEGATIVE (NEGATIVE); UGLUCOSE TRACE (NEGATIVE)
[2021-07-13 11:55] VITALS: BP 145/93
[2021-07-13 12:05] LABS: ACETAMINOPHEN < 0.5 ug/ml (10-30)
[2021-07-13 12:08] LABS: BARBITURATE, URINE NEGATIVE ng/ml (NEG <=200); BENZODIAZEPINE, URINE POSITIVE ng/mL (NEG <=200); CANNABINOID, URINE NEGATIVE ng/mL (NEG <=50); COCAINE, URINE NEGATIVE ng/mL (NEG <=300); OPIATE, URINE POSITIVE ng/mL (NEG <=2000); PHENCYCLIDINE SCREEN,URINE NEGATIVE ng/mL (NEG <=25)
--- NOTE | 2021-07-13 12:13 | NUR ---
PT MOVED TO ER BED 7
[2021-07-13 12:14] LABS: RBC,URINE 0-5 /HPF (0-5); WBC,URINE 0-5 /HPF (0-5)
[2021-07-13 12:15] LABS: OTHER CASTS, URINE None Seen /LPF (None Seen)
[2021-07-13] MEDS ORDERED: LORazepam 2 MG/ML VIAL IVP ONE (12:20)
--- NOTE | 2021-07-13 12:44 | NUR ---
LAB AT BEDSIDE; COVID TAMRA SWAB HANDED TO CPT.
[2021-07-13] MEDS ORDERED: ACETAMINOPHEN 325 MG TAB PO PRN (13:10)
[2021-07-13] MEDS ORDERED: DOCUSATE SODIUM 100 MG GELCAP PO PRN (13:10)
[2021-07-13] MEDS ORDERED: SODIUM PHOS / POTASSIUM PHOS 1 PKT PDR PO PRN (13:10)
[2021-07-13] MEDS ORDERED: ONDANSETRON 4 MG/2 ML VIAL IM/IVP PRN (13:10)
[2021-07-13] MEDS ORDERED: HYDROcodone/APAP 5/325 MG 1 TAB TAB PO PRN (13:10)
[2021-07-13] MEDS ORDERED: NACL 0.9% 1,000 ML IV SCH (13:10)
[2021-07-13] MEDS ORDERED: MAGNESIUM OXIDE 400 MG TAB PO PRN (13:10)
[2021-07-13] MEDS ORDERED: MORPHINE SULFATE 2 MG/ML SYR IVP PRN (13:10)
[2021-07-13] MEDS ORDERED: POTASSIUM CHLORIDE 10 MEQ TABER PO PRN (13:10)
--- NOTE | 2021-07-13 13:17 | NUR ---
PATIENT WAS OFFERED LUNCH, SITTING UP AND EATING AT BEDSIDE.
--- NOTE | 2021-07-13 13:34 | NUR ---
DR DARBY AT BEDSIDE EVALUATING PT
[2021-07-13] MEDS ORDERED: DEXTROSE 50% 50 ML SYR IVP PRN (13:40)
[2021-07-13] MEDS ORDERED: cefTRIAXone 1,000 MG VIAL ONE (13:47)
[2021-07-13 13:48] LABS: MAGNESIUM 2.3 mg/dL (1.8-2.4); PHOSPHORUS 3.8 mg/dL (2.5-4.9)
[2021-07-13] MEDS ORDERED: BLOOD GLUCOSE MONITORING 1 DEV DEV FS SCH (16:00)
--- NOTE | 2021-07-13 16:14 | NUR ---
PT MOVED TO CHAIR C.
[2021-07-13] MEDS ORDERED: LORazepam 2 MG/ML VIAL ONE (16:35)
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
--- NOTE | 2021-07-13 16:42 | NUR ---
PT REMOVED IV. catheter intact and site benign. Applied folded 4x4 gauze and tape to stop bleeding.
--- NOTE | 2021-07-13 16:48 | NUR ---
PATIENT ELOPED FROM FACILITY. DISCHARGE INSTRUCTIONS NOT GIVEN TO PATIENT. DR. DARBY NOTIFIED.
[2021-07-13] MEDS ORDERED: levETIRAcetam 500 MG TAB PO SCH (21:00)
[2021-07-14] MEDS ORDERED: NICOTINE TRANSD SYS 14 MG/24 HR PATCH TD SCH (09:00)
[2021-07-14] MEDS ORDERED: PANTOPRAZOLE 40 MG TABEC PO SCH (09:00)
== END 2021-07-13 16:48 | disposition left against medical advice (07) | DRG 640 ==
LOC: MED 05:40 → MTU 12:50
PROVIDERS: ADMIT Hospitalist; ATTEND Hospitalist
DX: E16.2 Hypoglycemia, unspecified (principal); G92.9 Unspecified toxic encephalopathy; Q04.6 Congenital cerebral cysts; G81.91 Hemiplegia, unspecified affecting right dominant side; G10 Huntington's disease; E78.5 Hyperlipidemia, unspecified; E86.0 Dehydration; R74.01 Elevation of levels of liver transaminase levels; Z53.29 Procedure and treatment not carried out because of patient's decision for other reasons; G93.89 Other specified disorders of brain; G40.909 Epilepsy, unspecified, not intractable, without status epilepticus; Z20.822 Contact with and (suspected) exposure to COVID-19
CPT/HCPCS: 36415; 70450; 71045; 80053; 80305; 81001; 83735; 84100; 84484; 85025; 87040; 93005; 96361; 96365; 96375; 99285; G0480; G0482; J0696; J2060; J7030; Q0092

== ENCOUNTER 2021-07-15 13:09 | Emergency (ER) | payer OTHER ==
[~2021-07-15] VITALS: Ht 175.3 cm; Wt 68.0 kg
[~2021-07-15 13:09] MED LIST changes: -FOLI1TAB90 PO; -LIB25 PO; -THE PO; -THIA-34 PO
[2021-07-15 13:11] VITALS: BP 148/107
--- NOTE | 2021-07-15 13:20 | NUR ---
PT IN CHAIR D
--- NOTE | 2021-07-15 14:21 | NUR ---
PT PROVIDED WITH FOOD AND SNACKS AT THIS TIME
[2021-07-15 15:13] LABS: BASOPHILS % (AUTO) 0.4 % (0.0-2.0); EOSINOPHILS % (AUTO) 0.2 % (0.0-4.0); HEMATOCRIT 40.7 % (36-52); HEMOGLOBIN 13.7 g/dL (12.0-18.0); LYMPHOCYTES # (AUTO) 1.4 K/uL (2.0-11.5); LYMPHOCYTES % (AUTO) 24.7 % (20.5-51.1); MEAN CORPUSCULAR HEMOGLOBIN 30 pg (27-31); MEAN CORPUSCULAR HGB CONC 34 g/dL (33-37); MEAN CORPUSCULAR VOLUME 88.4 fL (80-94); MONOCYTES # (AUTO) 0.5 K/uL (0.8-1.0); MONOCYTES % (AUTO) 9.3 % (1.7-9.3); NEUTROPHILS # (AUTO) 3.7 K/uL (1.8-7.7); NEUTROPHILS % (AUTO) 65.4 % (42.2-75.2); PLATELET COUNT (AUTO) 211 K/uL (140-450); RED CELL DISTRIBUTION WIDTH 14.1 % (11.6-13.7); WHITE BLOOD COUNT (AUTO) 5.7 K/uL (4.8-10.8)
[2021-07-15 16:17] LABS: ALBUMIN 4.4 g/dL (3.4-5.0); ANION GAP 20.6 (8-16); ASPARTATE AMINOTRANSFERASE 40 U/L (15-37); CHLORIDE 102 mmol/L (98-107); CREATININE 0.7 mg/dL (0.6-1.3); GFR ARICAN-AMERICAN 161 mL/min (>90); GLUCOSE 66 mg/dL (74-106); POTASSIUM 3.6 mmol/L (3.5-5.1); SODIUM SERUM 140 mmol/L (136-145); TOTAL BILIRUBIN 0.5 mg/dL (0.0-1.0); UREA NITROGEN, BLOOD 23 mg/dL (7-18)
--- NOTE | 2021-07-15 16:57 | NUR ---
PATIENT ELOPED FROM FACILITY. DISCHARGE INSTRUCTIONS NOT GIVEN TO PATIENT. DR. AGUILAR NOTIFIED.
== END 2021-07-15 16:57 | disposition left against medical advice (07) ==
LOC: MED 13:09
DX: R41.82 Altered mental status, unspecified (principal); F10.129 Alcohol abuse with intoxication, unspecified; I10 Essential (primary) hypertension; Z79.899 Other long term (current) drug therapy; Z98.890 Other specified postprocedural states
CPT/HCPCS: 36415; 80053; 85025; 99283; G0482